=== PATIENT | female | born 1935 | race Caucasian/White ===

== ENCOUNTER 2016-09-01 08:40 | Outpatient (CLI) | payer MEDICARE, MEDICAID ==
[~2016-09-01 08:40] MED LIST: ASPI81TA44 PO; CELE200C PO; ESOM40CA PO; HYDR-3024 PO; HYDR-429 PO; NEBI5TAB8 PO; OLME1TAB PO; SENN8.6T22 PO; SITA1TAB2 PO; [UNRECOGNIZED DRUG - CODE] PO
== END 2016-09-01 23:59 | disposition home health service (06) ==
LOC: WOU 08:40
PROVIDERS: ATTEND Podiatrist Foot & Ankle Surgery
DX: S90.821A Blister (nonthermal), right foot, initial encounter (principal); X58.XXXA Exposure to other specified factors, initial encounter; Y93.01 Activity, walking, marching and hiking; Y92.89 Other specified places as the place of occurrence of the external cause; E11.621 Type 2 diabetes mellitus with foot ulcer; L97.511 Non-pressure chronic ulcer of other part of right foot limited to breakdown of skin; E11.41 Type 2 diabetes mellitus with diabetic mononeuropathy; E66.9 Obesity, unspecified; Z68.30 Body mass index [BMI] 30.0-30.9, adult
CPT/HCPCS: 10140; 87070; A6402; 87186-TC

== ENCOUNTER → 2016-09-15 | Outpatient (CLI) | payer MEDICARE, MEDICAID ==
[~2016-09-15] MED LIST changes: -HYDR-429 PO; +HYDR-548 PO
== END | disposition home health service (06) ==
LOC: WOU 08:55
PROVIDERS: ATTEND Podiatrist Foot & Ankle Surgery
DX: E11.621 Type 2 diabetes mellitus with foot ulcer (principal); L97.512 Non-pressure chronic ulcer of other part of right foot with fat layer exposed; E11.610 Type 2 diabetes mellitus with diabetic neuropathic arthropathy; E11.41 Type 2 diabetes mellitus with diabetic mononeuropathy; E66.09 Other obesity due to excess calories; Z68.30 Body mass index [BMI] 30.0-30.9, adult
CPT/HCPCS: 11042; A6402

== ENCOUNTER 2016-10-06 08:55 | Outpatient (CLI) | payer MEDICARE, MEDICAID | END 2016-10-06 23:59 | disposition home health service (06) | LOC: WOU 08:55 | PROVIDERS: ATTEND Podiatrist Foot & Ankle Surgery | DX: E11.621 Type 2 diabetes mellitus with foot ulcer (principal); L97.511 Non-pressure chronic ulcer of other part of right foot limited to breakdown of skin; E11.41 Type 2 diabetes mellitus with diabetic mononeuropathy; E66.9 Obesity, unspecified; Z68.30 Body mass index [BMI] 30.0-30.9, adult; Z79.84 Long term (current) use of oral hypoglycemic drugs | CPT/HCPCS: 11042; A6402 ==

== ENCOUNTER 2016-10-13 08:54 | Outpatient (CLI) | payer MEDICARE, MEDICAID | END 2016-10-13 23:59 | disposition home health service (06) | LOC: WOU 08:54 | PROVIDERS: ATTEND Podiatrist Foot & Ankle Surgery | DX: E11.621 Type 2 diabetes mellitus with foot ulcer (principal); L97.512 Non-pressure chronic ulcer of other part of right foot with fat layer exposed; E66.9 Obesity, unspecified; Z68.30 Body mass index [BMI] 30.0-30.9, adult; E11.610 Type 2 diabetes mellitus with diabetic neuropathic arthropathy; E11.41 Type 2 diabetes mellitus with diabetic mononeuropathy; S90.821A Blister (nonthermal), right foot, initial encounter; X58.XXXA Exposure to other specified factors, initial encounter; Y93.01 Activity, walking, marching and hiking; Y92.89 Other specified places as the place of occurrence of the external cause | CPT/HCPCS: 11042; A6402 ==

== ENCOUNTER 2016-10-20 09:01 | Outpatient (CLI) | payer MEDICARE, MEDICAID | END 2016-10-20 23:59 | disposition home health service (06) | LOC: WOU 09:01 | PROVIDERS: ATTEND Podiatrist Foot & Ankle Surgery | DX: E11.621 Type 2 diabetes mellitus with foot ulcer (principal); L97.512 Non-pressure chronic ulcer of other part of right foot with fat layer exposed; E11.610 Type 2 diabetes mellitus with diabetic neuropathic arthropathy; E11.41 Type 2 diabetes mellitus with diabetic mononeuropathy; E66.9 Obesity, unspecified; Z68.30 Body mass index [BMI] 30.0-30.9, adult; M20.12 Hallux valgus (acquired), left foot; M20.11 Hallux valgus (acquired), right foot; Z79.84 Long term (current) use of oral hypoglycemic drugs | CPT/HCPCS: 11042; A6402 ==

== ENCOUNTER 2016-10-27 09:03 | Outpatient (CLI) | payer MEDICARE, MEDICAID | END 2016-10-27 23:59 | disposition home health service (06) | LOC: WOU 09:03 | PROVIDERS: ATTEND Podiatrist Foot & Ankle Surgery | DX: E11.621 Type 2 diabetes mellitus with foot ulcer (principal); L97.512 Non-pressure chronic ulcer of other part of right foot with fat layer exposed; E11.42 Type 2 diabetes mellitus with diabetic polyneuropathy; Z99.3 Dependence on wheelchair; E11.41 Type 2 diabetes mellitus with diabetic mononeuropathy; E66.9 Obesity, unspecified; Z68.30 Body mass index [BMI] 30.0-30.9, adult | CPT/HCPCS: 11042; A6402 ==

== ENCOUNTER 2016-11-03 09:10 | Outpatient (CLI) | payer MEDICARE, MEDICAID | END 2016-11-03 23:59 | disposition home health service (06) | LOC: WOU 09:10 | PROVIDERS: ATTEND Podiatrist Foot & Ankle Surgery | DX: E11.621 Type 2 diabetes mellitus with foot ulcer (principal); L97.512 Non-pressure chronic ulcer of other part of right foot with fat layer exposed; E11.41 Type 2 diabetes mellitus with diabetic mononeuropathy; E11.610 Type 2 diabetes mellitus with diabetic neuropathic arthropathy | CPT/HCPCS: 11042; A6402 ==

== ENCOUNTER 2016-11-10 08:57 | Outpatient (CLI) | payer MEDICARE, MEDICAID | END 2016-11-10 23:59 | disposition home health service (06) | LOC: WOU 08:57 | PROVIDERS: ATTEND Podiatrist Foot & Ankle Surgery | DX: E11.621 Type 2 diabetes mellitus with foot ulcer (principal); L97.512 Non-pressure chronic ulcer of other part of right foot with fat layer exposed; S90.821S Blister (nonthermal), right foot, sequela; E11.610 Type 2 diabetes mellitus with diabetic neuropathic arthropathy; E11.41 Type 2 diabetes mellitus with diabetic mononeuropathy; Z79.84 Long term (current) use of oral hypoglycemic drugs | CPT/HCPCS: 11042; A6402 ==

== ENCOUNTER 2016-11-17 08:53 | Outpatient (CLI) | payer MEDICARE, MEDICAID | END 2016-11-17 23:59 | disposition home health service (06) | LOC: WOU 08:53 | PROVIDERS: ATTEND Podiatrist Foot & Ankle Surgery | DX: E11.621 Type 2 diabetes mellitus with foot ulcer (principal); L97.512 Non-pressure chronic ulcer of other part of right foot with fat layer exposed; E11.610 Type 2 diabetes mellitus with diabetic neuropathic arthropathy; Z99.3 Dependence on wheelchair; E11.41 Type 2 diabetes mellitus with diabetic mononeuropathy; G58.9 Mononeuropathy, unspecified; E66.9 Obesity, unspecified; Z68.30 Body mass index [BMI] 30.0-30.9, adult; R26.9 Unspecified abnormalities of gait and mobility; M20.5X2 Other deformities of toe(s) (acquired), left foot; M20.5X1 Other deformities of toe(s) (acquired), right foot; Z79.84 Long term (current) use of oral hypoglycemic drugs | CPT/HCPCS: 11042; A6402 ==

== ENCOUNTER 2016-11-27 08:37 | Outpatient (CLI) | payer MEDICARE, MEDICAID | END 2016-11-27 23:59 | disposition home health service (06) | LOC: WOU 08:37 | PROVIDERS: ATTEND Podiatrist Foot & Ankle Surgery | DX: E11.621 Type 2 diabetes mellitus with foot ulcer (principal); L97.414 Non-pressure chronic ulcer of right heel and midfoot with necrosis of bone; E11.610 Type 2 diabetes mellitus with diabetic neuropathic arthropathy; E10.41 Type 1 diabetes mellitus with diabetic mononeuropathy; E66.9 Obesity, unspecified; Z68.30 Body mass index [BMI] 30.0-30.9, adult; Z71.3 Dietary counseling and surveillance; M20.12 Hallux valgus (acquired), left foot; M20.11 Hallux valgus (acquired), right foot; M20.42 Other hammer toe(s) (acquired), left foot; M20.41 Other hammer toe(s) (acquired), right foot | CPT/HCPCS: 11044; A6402; A6407 ==

== ENCOUNTER 2016-12-01 10:21 | Outpatient (CLI) | payer MEDICARE, MEDICAID | END 2016-12-01 23:59 | disposition home health service (06) | LOC: WOU 10:21 | PROVIDERS: ATTEND Surgery | DX: E11.621 Type 2 diabetes mellitus with foot ulcer (principal); E11.610 Type 2 diabetes mellitus with diabetic neuropathic arthropathy; L97.413 Non-pressure chronic ulcer of right heel and midfoot with necrosis of muscle; E11.41 Type 2 diabetes mellitus with diabetic mononeuropathy; G58.9 Mononeuropathy, unspecified; E66.9 Obesity, unspecified; Z68.30 Body mass index [BMI] 30.0-30.9, adult; M20.42 Other hammer toe(s) (acquired), left foot; M20.41 Other hammer toe(s) (acquired), right foot; R26.9 Unspecified abnormalities of gait and mobility; Z79.84 Long term (current) use of oral hypoglycemic drugs; Z79.899 Other long term (current) drug therapy | CPT/HCPCS: 11043; 97605-TC; A6402 ==

== ENCOUNTER 2016-12-04 09:05 | Outpatient (CLI) | payer MEDICARE, MEDICAID | END 2016-12-04 23:59 | disposition home health service (06) | LOC: WOU 09:05 | PROVIDERS: ATTEND Podiatrist Foot & Ankle Surgery | DX: E11.621 Type 2 diabetes mellitus with foot ulcer (principal); L97.414 Non-pressure chronic ulcer of right heel and midfoot with necrosis of bone; E11.610 Type 2 diabetes mellitus with diabetic neuropathic arthropathy; E66.9 Obesity, unspecified; Z68.30 Body mass index [BMI] 30.0-30.9, adult; M21.072 Valgus deformity, not elsewhere classified, left ankle; M21.071 Valgus deformity, not elsewhere classified, right ankle; R26.9 Unspecified abnormalities of gait and mobility; Z79.899 Other long term (current) drug therapy; Z79.84 Long term (current) use of oral hypoglycemic drugs | CPT/HCPCS: 11044; A6402 ==

== ENCOUNTER 2016-12-11 08:54 | Outpatient (CLI) | payer MEDICARE, MEDICAID | END 2016-12-11 23:59 | disposition home health service (06) | LOC: WOU 08:54 | PROVIDERS: ATTEND Podiatrist Foot & Ankle Surgery | DX: E11.621 Type 2 diabetes mellitus with foot ulcer (principal); L97.414 Non-pressure chronic ulcer of right heel and midfoot with necrosis of bone; E11.610 Type 2 diabetes mellitus with diabetic neuropathic arthropathy; E11.41 Type 2 diabetes mellitus with diabetic mononeuropathy; G58.9 Mononeuropathy, unspecified; Z79.84 Long term (current) use of oral hypoglycemic drugs; E66.9 Obesity, unspecified; Z68.30 Body mass index [BMI] 30.0-30.9, adult; Z71.3 Dietary counseling and surveillance | CPT/HCPCS: 11044; 73630; 97605; A6402 ==

== ENCOUNTER 2016-12-15 08:45 | Outpatient (CLI) | payer MEDICARE, MEDICAID | END 2016-12-15 23:59 | disposition home health service (06) | LOC: WOU 08:45 | PROVIDERS: ATTEND Surgery | DX: E11.621 Type 2 diabetes mellitus with foot ulcer (principal); L97.414 Non-pressure chronic ulcer of right heel and midfoot with necrosis of bone; E11.610 Type 2 diabetes mellitus with diabetic neuropathic arthropathy; E66.9 Obesity, unspecified; Z68.30 Body mass index [BMI] 30.0-30.9, adult; Z71.3 Dietary counseling and surveillance | CPT/HCPCS: 11042; 11044; 97605-TC ==

== ENCOUNTER 2016-12-18 08:59 | Outpatient (CLI) | payer MEDICARE, MEDICAID | END 2016-12-18 23:59 | disposition home health service (06) | LOC: WOU 08:59 | PROVIDERS: ATTEND Podiatrist Foot & Ankle Surgery | DX: E11.621 Type 2 diabetes mellitus with foot ulcer (principal); L97.414 Non-pressure chronic ulcer of right heel and midfoot with necrosis of bone; E11.610 Type 2 diabetes mellitus with diabetic neuropathic arthropathy; E11.41 Type 2 diabetes mellitus with diabetic mononeuropathy; G58.9 Mononeuropathy, unspecified; E66.9 Obesity, unspecified; Z68.30 Body mass index [BMI] 30.0-30.9, adult; Z71.3 Dietary counseling and surveillance; M20.42 Other hammer toe(s) (acquired), left foot; M20.41 Other hammer toe(s) (acquired), right foot; Z79.84 Long term (current) use of oral hypoglycemic drugs; Z79.82 Long term (current) use of aspirin | CPT/HCPCS: 11044; 97605-TC; A6402 ==

== ENCOUNTER 2016-12-22 09:03 | Outpatient (CLI) | payer MEDICARE, MEDICAID | END 2016-12-22 23:59 | disposition home health service (06) | LOC: WOU 09:03 | PROVIDERS: ATTEND Surgery | DX: E11.621 Type 2 diabetes mellitus with foot ulcer (principal); L97.414 Non-pressure chronic ulcer of right heel and midfoot with necrosis of bone; E11.610 Type 2 diabetes mellitus with diabetic neuropathic arthropathy; Z79.84 Long term (current) use of oral hypoglycemic drugs; M20.12 Hallux valgus (acquired), left foot; M20.11 Hallux valgus (acquired), right foot; E11.41 Type 2 diabetes mellitus with diabetic mononeuropathy; G58.9 Mononeuropathy, unspecified; E66.9 Obesity, unspecified; Z68.30 Body mass index [BMI] 30.0-30.9, adult | CPT/HCPCS: 11043; 97605-TC; A6402 ==

== ENCOUNTER → 2016-12-25 | Outpatient (CLI) | payer MEDICARE, MEDICAID | END | disposition home health service (06) | LOC: WOU 09:20 | PROVIDERS: ATTEND Surgery | DX: E11.621 Type 2 diabetes mellitus with foot ulcer (principal); L97.414 Non-pressure chronic ulcer of right heel and midfoot with necrosis of bone; E11.610 Type 2 diabetes mellitus with diabetic neuropathic arthropathy; R26.9 Unspecified abnormalities of gait and mobility; E11.40 Type 2 diabetes mellitus with diabetic neuropathy, unspecified; Z79.84 Long term (current) use of oral hypoglycemic drugs | CPT/HCPCS: 11043; 97605; A6402 ==

== ENCOUNTER 2016-12-29 08:52 | Outpatient (CLI) | payer MEDICARE, MEDICAID | END 2016-12-29 23:59 | disposition home health service (06) | LOC: WOU 08:52 | PROVIDERS: ATTEND Podiatrist Foot & Ankle Surgery | DX: E11.621 Type 2 diabetes mellitus with foot ulcer (principal); L97.411 Non-pressure chronic ulcer of right heel and midfoot limited to breakdown of skin; E11.610 Type 2 diabetes mellitus with diabetic neuropathic arthropathy; E11.41 Type 2 diabetes mellitus with diabetic mononeuropathy; G58.9 Mononeuropathy, unspecified; E66.9 Obesity, unspecified; Z68.30 Body mass index [BMI] 30.0-30.9, adult; Z79.84 Long term (current) use of oral hypoglycemic drugs | CPT/HCPCS: 11042; 97605; A6402 ==

== ENCOUNTER 2017-01-01 09:50 | Outpatient (CLI) | payer MEDICARE, MEDICAID | END 2017-01-01 23:59 | disposition home health service (06) | LOC: WOU 09:50 | PROVIDERS: ATTEND Podiatrist Foot & Ankle Surgery | DX: E11.621 Type 2 diabetes mellitus with foot ulcer (principal); L97.411 Non-pressure chronic ulcer of right heel and midfoot limited to breakdown of skin; E11.610 Type 2 diabetes mellitus with diabetic neuropathic arthropathy; E66.9 Obesity, unspecified; Z68.30 Body mass index [BMI] 30.0-30.9, adult | CPT/HCPCS: 29445; 97605; A6402 ==

== ENCOUNTER 2017-01-05 09:40 | Outpatient (CLI) | payer MEDICARE, MEDICAID | END 2017-01-05 23:59 | disposition home health service (06) | LOC: WOU 09:40 | PROVIDERS: ATTEND Podiatrist Foot & Ankle Surgery | DX: E11.621 Type 2 diabetes mellitus with foot ulcer (principal); L97.411 Non-pressure chronic ulcer of right heel and midfoot limited to breakdown of skin; E11.610 Type 2 diabetes mellitus with diabetic neuropathic arthropathy; L97.521 Non-pressure chronic ulcer of other part of left foot limited to breakdown of skin; E66.9 Obesity, unspecified; Z68.30 Body mass index [BMI] 30.0-30.9, adult | CPT/HCPCS: 29445; A6402 ==

== ENCOUNTER 2017-01-08 09:44 | Outpatient (CLI) | payer MEDICARE, MEDICAID | END 2017-01-08 23:59 | disposition home health service (06) | LOC: WOU 09:44 | PROVIDERS: ATTEND Podiatrist Foot & Ankle Surgery | DX: E11.621 Type 2 diabetes mellitus with foot ulcer (principal); L97.411 Non-pressure chronic ulcer of right heel and midfoot limited to breakdown of skin; L97.521 Non-pressure chronic ulcer of other part of left foot limited to breakdown of skin; E11.610 Type 2 diabetes mellitus with diabetic neuropathic arthropathy; E11.41 Type 2 diabetes mellitus with diabetic mononeuropathy; G58.9 Mononeuropathy, unspecified; Z79.84 Long term (current) use of oral hypoglycemic drugs | CPT/HCPCS: A6402 ==

== ENCOUNTER 2017-01-15 11:02 | Outpatient (CLI) | payer MEDICARE, MEDICAID | END 2017-01-15 23:59 | disposition home health service (06) | LOC: WOU 11:02 | PROVIDERS: ATTEND Surgery | DX: E11.621 Type 2 diabetes mellitus with foot ulcer (principal); L97.411 Non-pressure chronic ulcer of right heel and midfoot limited to breakdown of skin; E11.610 Type 2 diabetes mellitus with diabetic neuropathic arthropathy; L97.529 Non-pressure chronic ulcer of other part of left foot with unspecified severity | CPT/HCPCS: 11042; A6402 ==

== ENCOUNTER 2017-01-22 10:15 | Outpatient (CLI) | payer MEDICARE, MEDICAID | END 2017-01-22 23:59 | disposition home health service (06) | LOC: WOU 10:15 | PROVIDERS: ATTEND Podiatrist Foot & Ankle Surgery | DX: E11.621 Type 2 diabetes mellitus with foot ulcer (principal); L97.411 Non-pressure chronic ulcer of right heel and midfoot limited to breakdown of skin; E11.610 Type 2 diabetes mellitus with diabetic neuropathic arthropathy; E66.8 Other obesity; Z68.30 Body mass index [BMI] 30.0-30.9, adult; Z79.84 Long term (current) use of oral hypoglycemic drugs; Z79.899 Other long term (current) drug therapy; Z79.82 Long term (current) use of aspirin | CPT/HCPCS: 11042; A6402 ==

== ENCOUNTER 2017-02-02 09:45 | Outpatient (CLI) | payer MEDICARE, MEDICAID | END 2017-02-02 23:59 | disposition home health service (06) | LOC: WOU 09:45 | PROVIDERS: ATTEND Podiatrist Foot & Ankle Surgery | DX: E11.621 Type 2 diabetes mellitus with foot ulcer (principal); L97.411 Non-pressure chronic ulcer of right heel and midfoot limited to breakdown of skin; E11.610 Type 2 diabetes mellitus with diabetic neuropathic arthropathy; E11.41 Type 2 diabetes mellitus with diabetic mononeuropathy; E66.9 Obesity, unspecified; Z68.30 Body mass index [BMI] 30.0-30.9, adult; Z71.3 Dietary counseling and surveillance; Z79.84 Long term (current) use of oral hypoglycemic drugs | CPT/HCPCS: 11042; 11043; A6402 ==

== ENCOUNTER 2017-02-09 09:57 | Outpatient (CLI) | payer MEDICARE, MEDICAID | END 2017-02-09 23:59 | disposition home health service (06) | LOC: WOU 09:57 | PROVIDERS: ATTEND Podiatrist Foot & Ankle Surgery | DX: E11.621 Type 2 diabetes mellitus with foot ulcer (principal); L97.511 Non-pressure chronic ulcer of other part of right foot limited to breakdown of skin | CPT/HCPCS: 11042; A6402 ==

== ENCOUNTER 2017-02-23 09:25 | Outpatient (CLI) | payer MEDICARE, MEDICAID | END 2017-02-23 23:59 | disposition home health service (06) | LOC: WOU 09:25 | PROVIDERS: ATTEND Podiatrist Foot & Ankle Surgery | DX: E11.610 Type 2 diabetes mellitus with diabetic neuropathic arthropathy (principal); E11.41 Type 2 diabetes mellitus with diabetic mononeuropathy; G58.9 Mononeuropathy, unspecified; Z79.84 Long term (current) use of oral hypoglycemic drugs; E66.9 Obesity, unspecified; Z68.30 Body mass index [BMI] 30.0-30.9, adult | CPT/HCPCS: G0463 ==

== ENCOUNTER 2017-03-02 09:50 | Outpatient (CLI) | payer MEDICARE, MEDICAID | END 2017-03-02 23:59 | disposition home or self-care (01) | LOC: WOU 09:50 | PROVIDERS: ATTEND Podiatrist Foot & Ankle Surgery | DX: E11.41 Type 2 diabetes mellitus with diabetic mononeuropathy (principal); E11.610 Type 2 diabetes mellitus with diabetic neuropathic arthropathy; E66.9 Obesity, unspecified; Z68.30 Body mass index [BMI] 30.0-30.9, adult | CPT/HCPCS: G0463 ==

== ENCOUNTER 2017-03-12 09:34 | Outpatient (CLI) | payer MEDICARE, MEDICAID | END 2017-03-12 23:59 | disposition home or self-care (01) | LOC: WOU 09:34 | PROVIDERS: ATTEND Podiatrist Foot & Ankle Surgery | DX: E11.610 Type 2 diabetes mellitus with diabetic neuropathic arthropathy (principal); E11.41 Type 2 diabetes mellitus with diabetic mononeuropathy; M20.12 Hallux valgus (acquired), left foot; M20.11 Hallux valgus (acquired), right foot; M20.42 Other hammer toe(s) (acquired), left foot; M20.41 Other hammer toe(s) (acquired), right foot | CPT/HCPCS: G0463 ==

== ENCOUNTER 2017-05-04 09:30 | Outpatient (CLI) | payer MEDICARE, MEDICAID | END 2017-05-04 23:59 | disposition home health service (06) | LOC: WOU 09:30 | PROVIDERS: ATTEND Podiatrist Foot & Ankle Surgery | DX: E11.621 Type 2 diabetes mellitus with foot ulcer (principal); L97.413 Non-pressure chronic ulcer of right heel and midfoot with necrosis of muscle; T81.30XA Disruption of wound, unspecified, initial encounter; E11.41 Type 2 diabetes mellitus with diabetic mononeuropathy; E11.610 Type 2 diabetes mellitus with diabetic neuropathic arthropathy; E66.9 Obesity, unspecified; Z68.30 Body mass index [BMI] 30.0-30.9, adult | CPT/HCPCS: 11043; A6402 ==

== ENCOUNTER 2017-05-11 08:50 | Outpatient (CLI) | payer MEDICARE, MEDICAID | END 2017-05-11 23:59 | disposition home or self-care (01) | LOC: WOU 08:50 | PROVIDERS: ATTEND Podiatrist Foot & Ankle Surgery | DX: E11.621 Type 2 diabetes mellitus with foot ulcer (principal); L97.413 Non-pressure chronic ulcer of right heel and midfoot with necrosis of muscle; E11.610 Type 2 diabetes mellitus with diabetic neuropathic arthropathy; Z83.3 Family history of diabetes mellitus; E11.41 Type 2 diabetes mellitus with diabetic mononeuropathy | CPT/HCPCS: 11043; 97605-TC; A6402 ==

== ENCOUNTER 2017-05-14 08:56 | Outpatient (CLI) | payer MEDICARE, MEDICAID | END 2017-05-14 23:59 | disposition home or self-care (01) | LOC: WOU 08:56 | PROVIDERS: ATTEND Podiatrist Foot & Ankle Surgery | DX: E11.621 Type 2 diabetes mellitus with foot ulcer (principal); L97.412 Non-pressure chronic ulcer of right heel and midfoot with fat layer exposed; E11.610 Type 2 diabetes mellitus with diabetic neuropathic arthropathy; E11.41 Type 2 diabetes mellitus with diabetic mononeuropathy; Z79.84 Long term (current) use of oral hypoglycemic drugs | CPT/HCPCS: 11043; 97605-TC; A6402 ==

== ENCOUNTER 2017-05-18 08:53 | Outpatient (CLI) | payer MEDICARE, MEDICAID | END 2017-05-18 23:59 | disposition home or self-care (01) | LOC: WOU 08:53 | PROVIDERS: ATTEND Podiatrist Foot & Ankle Surgery | DX: E11.621 Type 2 diabetes mellitus with foot ulcer (principal); L97.413 Non-pressure chronic ulcer of right heel and midfoot with necrosis of muscle; L97.529 Non-pressure chronic ulcer of other part of left foot with unspecified severity; E66.9 Obesity, unspecified; Z68.30 Body mass index [BMI] 30.0-30.9, adult; E11.610 Type 2 diabetes mellitus with diabetic neuropathic arthropathy | CPT/HCPCS: 11043; 97605-TC; A6209; A6402 ==

== ENCOUNTER 2017-05-21 09:10 | Outpatient (CLI) | payer MEDICARE, MEDICAID | END 2017-05-21 23:59 | disposition home or self-care (01) | LOC: WOU 09:10 | PROVIDERS: ATTEND Podiatrist Foot & Ankle Surgery | DX: E11.621 Type 2 diabetes mellitus with foot ulcer (principal); L97.413 Non-pressure chronic ulcer of right heel and midfoot with necrosis of muscle; L97.522 Non-pressure chronic ulcer of other part of left foot with fat layer exposed; E11.610 Type 2 diabetes mellitus with diabetic neuropathic arthropathy; Z79.84 Long term (current) use of oral hypoglycemic drugs; Z83.3 Family history of diabetes mellitus; E11.41 Type 2 diabetes mellitus with diabetic mononeuropathy; E66.9 Obesity, unspecified; Z68.30 Body mass index [BMI] 30.0-30.9, adult | CPT/HCPCS: 11043; 97605-TC; A6209; A6402 ==

== ENCOUNTER 2017-05-25 08:55 | Outpatient (CLI) | payer MEDICARE, MEDICAID | END 2017-05-25 23:59 | disposition home or self-care (01) | LOC: WOU 08:55 | PROVIDERS: ATTEND Podiatrist Foot & Ankle Surgery | DX: E11.621 Type 2 diabetes mellitus with foot ulcer (principal); L97.413 Non-pressure chronic ulcer of right heel and midfoot with necrosis of muscle; E11.610 Type 2 diabetes mellitus with diabetic neuropathic arthropathy; L97.529 Non-pressure chronic ulcer of other part of left foot with unspecified severity; E66.9 Obesity, unspecified; Z68.30 Body mass index [BMI] 30.0-30.9, adult; Z71.3 Dietary counseling and surveillance | CPT/HCPCS: 11043; 97605; A6402 ==

== ENCOUNTER 2017-05-28 08:45 | Outpatient (CLI) | payer MEDICARE, MEDICAID | END 2017-05-28 23:59 | disposition home or self-care (01) | LOC: WOU 08:45 | PROVIDERS: ATTEND Podiatrist Foot & Ankle Surgery | DX: E11.621 Type 2 diabetes mellitus with foot ulcer (principal); L97.412 Non-pressure chronic ulcer of right heel and midfoot with fat layer exposed; E11.610 Type 2 diabetes mellitus with diabetic neuropathic arthropathy | CPT/HCPCS: 11042; 97605; A6402 ==

== ENCOUNTER 2017-06-01 09:00 | Outpatient (CLI) | payer MEDICARE, MEDICAID | END 2017-06-01 23:59 | disposition home or self-care (01) | LOC: WOU 09:00 | PROVIDERS: ATTEND Podiatrist Foot & Ankle Surgery | DX: E11.621 Type 2 diabetes mellitus with foot ulcer (principal); L97.412 Non-pressure chronic ulcer of right heel and midfoot with fat layer exposed; T81.30XA Disruption of wound, unspecified, initial encounter; Z79.84 Long term (current) use of oral hypoglycemic drugs; Z79.899 Other long term (current) drug therapy; E11.41 Type 2 diabetes mellitus with diabetic mononeuropathy; E11.610 Type 2 diabetes mellitus with diabetic neuropathic arthropathy | CPT/HCPCS: 11042; 97605; A6402 ==

== ENCOUNTER 2017-06-04 09:35 | Outpatient (CLI) | payer MEDICARE, MEDICAID | END 2017-06-04 23:59 | disposition home or self-care (01) | LOC: WOU 09:35 | PROVIDERS: ATTEND Podiatrist Foot & Ankle Surgery | DX: E11.621 Type 2 diabetes mellitus with foot ulcer (principal); L97.412 Non-pressure chronic ulcer of right heel and midfoot with fat layer exposed; E11.610 Type 2 diabetes mellitus with diabetic neuropathic arthropathy; Z79.84 Long term (current) use of oral hypoglycemic drugs | CPT/HCPCS: 11042; 97605; A6402 ==

== ENCOUNTER 2017-06-08 09:00 | Outpatient (CLI) | payer MEDICARE, MEDICAID | END 2017-06-08 23:59 | disposition home or self-care (01) | LOC: WOU 09:00 | PROVIDERS: ATTEND Podiatrist Foot & Ankle Surgery | DX: E11.621 Type 2 diabetes mellitus with foot ulcer (principal); L97.412 Non-pressure chronic ulcer of right heel and midfoot with fat layer exposed; E11.610 Type 2 diabetes mellitus with diabetic neuropathic arthropathy; E11.41 Type 2 diabetes mellitus with diabetic mononeuropathy; E66.9 Obesity, unspecified; Z68.30 Body mass index [BMI] 30.0-30.9, adult; Z79.84 Long term (current) use of oral hypoglycemic drugs | CPT/HCPCS: 11042; 97605; A6402 ==

== ENCOUNTER 2017-06-11 09:42 | Outpatient (CLI) | payer MEDICARE, MEDICAID | END 2017-06-11 23:59 | disposition home or self-care (01) | LOC: WOU 09:42 | PROVIDERS: ATTEND Podiatrist Foot & Ankle Surgery | DX: E11.621 Type 2 diabetes mellitus with foot ulcer (principal); L97.412 Non-pressure chronic ulcer of right heel and midfoot with fat layer exposed; E11.610 Type 2 diabetes mellitus with diabetic neuropathic arthropathy; Z79.84 Long term (current) use of oral hypoglycemic drugs; E11.41 Type 2 diabetes mellitus with diabetic mononeuropathy; E66.9 Obesity, unspecified; Z68.30 Body mass index [BMI] 30.0-30.9, adult | CPT/HCPCS: 11042; 97605; A6402 ==

== ENCOUNTER 2017-06-15 09:00 | Outpatient (CLI) | payer MEDICARE, MEDICAID | END 2017-06-15 23:59 | disposition home or self-care (01) | LOC: WOU 09:00 | PROVIDERS: ATTEND Podiatrist Foot & Ankle Surgery | DX: E11.621 Type 2 diabetes mellitus with foot ulcer (principal); L97.412 Non-pressure chronic ulcer of right heel and midfoot with fat layer exposed; E11.610 Type 2 diabetes mellitus with diabetic neuropathic arthropathy; E66.9 Obesity, unspecified; Z68.30 Body mass index [BMI] 30.0-30.9, adult; Z71.3 Dietary counseling and surveillance; M21.072 Valgus deformity, not elsewhere classified, left ankle; M21.071 Valgus deformity, not elsewhere classified, right ankle; M20.42 Other hammer toe(s) (acquired), left foot; M20.41 Other hammer toe(s) (acquired), right foot; Z79.84 Long term (current) use of oral hypoglycemic drugs; Z79.899 Other long term (current) drug therapy | CPT/HCPCS: 11042; 97605-TC ==

== ENCOUNTER 2017-06-18 09:57 | Outpatient (CLI) | payer MEDICARE, MEDICAID | END 2017-06-18 23:59 | disposition home or self-care (01) | LOC: WOU 09:57 | PROVIDERS: ATTEND Podiatrist Foot & Ankle Surgery | DX: E11.621 Type 2 diabetes mellitus with foot ulcer (principal); L97.412 Non-pressure chronic ulcer of right heel and midfoot with fat layer exposed; E11.610 Type 2 diabetes mellitus with diabetic neuropathic arthropathy; T81.30XA Disruption of wound, unspecified, initial encounter; L97.521 Non-pressure chronic ulcer of other part of left foot limited to breakdown of skin; Z79.84 Long term (current) use of oral hypoglycemic drugs; E11.41 Type 2 diabetes mellitus with diabetic mononeuropathy | CPT/HCPCS: 11042; A6402 ==

== ENCOUNTER 2017-06-22 09:32 | Outpatient (CLI) | payer MEDICARE, MEDICAID | END 2017-06-22 23:59 | disposition home or self-care (01) | LOC: WOU 09:32 | PROVIDERS: ATTEND Podiatrist Foot & Ankle Surgery | DX: E11.621 Type 2 diabetes mellitus with foot ulcer (principal); L97.412 Non-pressure chronic ulcer of right heel and midfoot with fat layer exposed; E11.610 Type 2 diabetes mellitus with diabetic neuropathic arthropathy; E11.41 Type 2 diabetes mellitus with diabetic mononeuropathy; E66.9 Obesity, unspecified; Z68.30 Body mass index [BMI] 30.0-30.9, adult; M20.42 Other hammer toe(s) (acquired), left foot; M20.41 Other hammer toe(s) (acquired), right foot; M21.072 Valgus deformity, not elsewhere classified, left ankle; M21.071 Valgus deformity, not elsewhere classified, right ankle | CPT/HCPCS: 11042; A6209; A6402 ==

== ENCOUNTER 2017-06-25 09:34 | Outpatient (CLI) | payer MEDICARE, MEDICAID | END 2017-06-25 23:59 | disposition home or self-care (01) | LOC: WOU 09:34 | PROVIDERS: ATTEND Podiatrist Foot & Ankle Surgery | DX: E11.621 Type 2 diabetes mellitus with foot ulcer (principal); L97.412 Non-pressure chronic ulcer of right heel and midfoot with fat layer exposed; E11.610 Type 2 diabetes mellitus with diabetic neuropathic arthropathy; E11.41 Type 2 diabetes mellitus with diabetic mononeuropathy; E66.9 Obesity, unspecified; Z68.30 Body mass index [BMI] 30.0-30.9, adult; M20.42 Other hammer toe(s) (acquired), left foot; M20.41 Other hammer toe(s) (acquired), right foot; Z79.84 Long term (current) use of oral hypoglycemic drugs; Z79.899 Other long term (current) drug therapy | CPT/HCPCS: 11042; A6402 ==

== ENCOUNTER 2017-06-29 09:04 | Outpatient (CLI) | payer MEDICARE, MEDICAID | END 2017-06-29 23:59 | disposition home or self-care (01) | LOC: WOU 09:04 | PROVIDERS: ATTEND Podiatrist Foot & Ankle Surgery | DX: E11.621 Type 2 diabetes mellitus with foot ulcer (principal); L97.412 Non-pressure chronic ulcer of right heel and midfoot with fat layer exposed; E11.610 Type 2 diabetes mellitus with diabetic neuropathic arthropathy; E11.41 Type 2 diabetes mellitus with diabetic mononeuropathy; Z79.84 Long term (current) use of oral hypoglycemic drugs; E66.9 Obesity, unspecified; Z68.30 Body mass index [BMI] 30.0-30.9, adult; Z87.891 Personal history of nicotine dependence | CPT/HCPCS: 11042; A6402 ==

== ENCOUNTER → 2017-07-02 | Outpatient (CLI) | payer MEDICARE, MEDICAID | END | disposition home or self-care (01) | LOC: WOU 08:56 | PROVIDERS: ATTEND Podiatrist Foot & Ankle Surgery | DX: E11.621 Type 2 diabetes mellitus with foot ulcer (principal); L97.412 Non-pressure chronic ulcer of right heel and midfoot with fat layer exposed; L97.521 Non-pressure chronic ulcer of other part of left foot limited to breakdown of skin; E11.610 Type 2 diabetes mellitus with diabetic neuropathic arthropathy; E11.41 Type 2 diabetes mellitus with diabetic mononeuropathy; E66.9 Obesity, unspecified; Z68.30 Body mass index [BMI] 30.0-30.9, adult; Z79.84 Long term (current) use of oral hypoglycemic drugs | CPT/HCPCS: 11042; A6209; A6402 ==

== ENCOUNTER 2017-07-06 09:00 | Outpatient (CLI) | payer MEDICARE, MEDICAID | END 2017-07-06 23:59 | disposition home or self-care (01) | LOC: WOU 09:00 | PROVIDERS: ATTEND Podiatrist Foot & Ankle Surgery | DX: E11.621 Type 2 diabetes mellitus with foot ulcer (principal); L97.412 Non-pressure chronic ulcer of right heel and midfoot with fat layer exposed; L97.521 Non-pressure chronic ulcer of other part of left foot limited to breakdown of skin; E11.610 Type 2 diabetes mellitus with diabetic neuropathic arthropathy; E66.9 Obesity, unspecified; Z68.30 Body mass index [BMI] 30.0-30.9, adult; M20.42 Other hammer toe(s) (acquired), left foot; M20.41 Other hammer toe(s) (acquired), right foot; Z83.3 Family history of diabetes mellitus; Z79.84 Long term (current) use of oral hypoglycemic drugs | CPT/HCPCS: 15275; A6209; A6402; Q4132 ==

== ENCOUNTER 2017-07-13 09:15 | Outpatient (CLI) | payer MEDICARE, MEDICAID | END 2017-07-13 23:59 | disposition home or self-care (01) | LOC: WOU 09:15 | PROVIDERS: ATTEND Podiatrist Foot & Ankle Surgery | DX: E11.621 Type 2 diabetes mellitus with foot ulcer (principal); L97.412 Non-pressure chronic ulcer of right heel and midfoot with fat layer exposed; L97.521 Non-pressure chronic ulcer of other part of left foot limited to breakdown of skin; E11.610 Type 2 diabetes mellitus with diabetic neuropathic arthropathy; Z87.891 Personal history of nicotine dependence; Z79.84 Long term (current) use of oral hypoglycemic drugs; Z83.3 Family history of diabetes mellitus; E66.9 Obesity, unspecified; Z68.30 Body mass index [BMI] 30.0-30.9, adult | CPT/HCPCS: 15275; A6402; Q4132 ==

== ENCOUNTER 2017-07-20 08:50 | Outpatient (CLI) | payer MEDICARE, MEDICAID | END 2017-07-20 23:59 | disposition home or self-care (01) | LOC: WOU 08:50 | PROVIDERS: ATTEND Podiatrist Foot & Ankle Surgery | DX: E11.621 Type 2 diabetes mellitus with foot ulcer (principal); L97.412 Non-pressure chronic ulcer of right heel and midfoot with fat layer exposed; E11.610 Type 2 diabetes mellitus with diabetic neuropathic arthropathy; E11.41 Type 2 diabetes mellitus with diabetic mononeuropathy; G58.9 Mononeuropathy, unspecified; Z79.84 Long term (current) use of oral hypoglycemic drugs | CPT/HCPCS: 15275; A6402; Q4133 ==

== ENCOUNTER 2017-07-27 09:00 | Outpatient (CLI) | payer MEDICARE, MEDICAID ==
[~2017-07-27 09:00] MED LIST changes: +RACEPINEPHRINE HCL 2.25% NEB 0.5 ML VIAL.NEB IH ONE
== END 2017-07-27 23:59 | disposition home or self-care (01) ==
LOC: WOU 09:00
PROVIDERS: ATTEND Podiatrist Foot & Ankle Surgery
DX: L97.412 Non-pressure chronic ulcer of right heel and midfoot with fat layer exposed (principal); E11.610 Type 2 diabetes mellitus with diabetic neuropathic arthropathy; E11.41 Type 2 diabetes mellitus with diabetic mononeuropathy; G58.9 Mononeuropathy, unspecified; Z79.84 Long term (current) use of oral hypoglycemic drugs; Z79.899 Other long term (current) drug therapy
CPT/HCPCS: 15275; A6402

== ENCOUNTER 2017-08-03 09:00 | Outpatient (CLI) | payer MEDICARE, MEDICAID ==
[~2017-08-03 09:00] MED LIST changes: -RACEPINEPHRINE HCL 2.25% NEB 0.5 ML VIAL.NEB IH ONE
== END 2017-08-03 23:59 | disposition home or self-care (01) ==
LOC: WOU 09:00
PROVIDERS: ATTEND Podiatrist Foot & Ankle Surgery
DX: E11.621 Type 2 diabetes mellitus with foot ulcer (principal); L97.412 Non-pressure chronic ulcer of right heel and midfoot with fat layer exposed; E11.610 Type 2 diabetes mellitus with diabetic neuropathic arthropathy; E66.9 Obesity, unspecified; Z68.34 Body mass index [BMI] 34.0-34.9, adult; Z79.84 Long term (current) use of oral hypoglycemic drugs
CPT/HCPCS: 15275; A6402; Q4132

== ENCOUNTER 2017-08-13 10:02 | Outpatient (CLI) | payer MEDICARE, MEDICAID ==
[~2017-08-13 10:02] MED LIST changes: -OLME1TAB PO; +OLME1TAB16 PO
== END 2017-08-13 23:59 | disposition home or self-care (01) ==
LOC: WOU 10:02
PROVIDERS: ATTEND Podiatrist Foot & Ankle Surgery
DX: E11.621 Type 2 diabetes mellitus with foot ulcer (principal); L97.412 Non-pressure chronic ulcer of right heel and midfoot with fat layer exposed; E66.9 Obesity, unspecified; Z68.30 Body mass index [BMI] 30.0-30.9, adult; E11.610 Type 2 diabetes mellitus with diabetic neuropathic arthropathy; E11.41 Type 2 diabetes mellitus with diabetic mononeuropathy; G58.9 Mononeuropathy, unspecified; Z79.84 Long term (current) use of oral hypoglycemic drugs
CPT/HCPCS: 15275; A6402; Q4133 ×2

== ENCOUNTER 2017-08-20 09:36 | Outpatient (CLI) | payer MEDICARE, MEDICAID | END 2017-08-20 23:59 | disposition home or self-care (01) | LOC: WOU 09:36 | PROVIDERS: ATTEND Podiatrist Foot & Ankle Surgery | DX: E11.621 Type 2 diabetes mellitus with foot ulcer (principal); L97.412 Non-pressure chronic ulcer of right heel and midfoot with fat layer exposed; E11.610 Type 2 diabetes mellitus with diabetic neuropathic arthropathy; E11.41 Type 2 diabetes mellitus with diabetic mononeuropathy; Z79.84 Long term (current) use of oral hypoglycemic drugs | CPT/HCPCS: 15275; A6402; Q4133 ×2 ==

== ENCOUNTER 2017-08-31 09:28 | Outpatient (CLI) | payer MEDICARE, MEDICAID | END 2017-08-31 23:59 | disposition home or self-care (01) | LOC: WOU 09:28 | PROVIDERS: ATTEND Podiatrist Foot & Ankle Surgery | DX: E11.621 Type 2 diabetes mellitus with foot ulcer (principal); L97.412 Non-pressure chronic ulcer of right heel and midfoot with fat layer exposed; E11.610 Type 2 diabetes mellitus with diabetic neuropathic arthropathy; Z79.84 Long term (current) use of oral hypoglycemic drugs; E11.41 Type 2 diabetes mellitus with diabetic mononeuropathy; G58.9 Mononeuropathy, unspecified; E66.9 Obesity, unspecified; Z68.30 Body mass index [BMI] 30.0-30.9, adult | CPT/HCPCS: 11042; A6402 ==

== ENCOUNTER 2017-09-07 09:08 | Outpatient (CLI) | payer MEDICARE, MEDICAID | END 2017-09-07 23:59 | disposition home or self-care (01) | LOC: WOU 09:08 | PROVIDERS: ATTEND Podiatrist Foot & Ankle Surgery | DX: E11.42 Type 2 diabetes mellitus with diabetic polyneuropathy (principal); E11.610 Type 2 diabetes mellitus with diabetic neuropathic arthropathy; Z86.31 Personal history of diabetic foot ulcer; E66.9 Obesity, unspecified; Z68.30 Body mass index [BMI] 30.0-30.9, adult; Z83.3 Family history of diabetes mellitus; Z79.84 Long term (current) use of oral hypoglycemic drugs | CPT/HCPCS: A6402 ==

== ENCOUNTER 2017-09-10 09:20 | Outpatient (CLI) | payer MEDICARE, MEDICAID ==
[~2017-09-10 09:20] MED LIST changes: +ALBUTEROL FS 2.5 MG/0.5 ML VIAL.NEB ONE
== END 2017-09-10 23:59 | disposition home or self-care (01) ==
LOC: WOU 09:20
PROVIDERS: ATTEND Podiatrist Foot & Ankle Surgery
DX: E11.610 Type 2 diabetes mellitus with diabetic neuropathic arthropathy (principal); Z86.31 Personal history of diabetic foot ulcer; E11.41 Type 2 diabetes mellitus with diabetic mononeuropathy; G58.9 Mononeuropathy, unspecified
CPT/HCPCS: A6402

== ENCOUNTER 2017-09-21 08:28 | Outpatient (CLI) | payer MEDICARE, MEDICAID ==
[~2017-09-21 08:28] MED LIST changes: -ALBUTEROL FS 2.5 MG/0.5 ML VIAL.NEB ONE
== END 2017-09-21 23:59 | disposition home or self-care (01) ==
LOC: WOU 08:28
PROVIDERS: ATTEND Podiatrist Foot & Ankle Surgery
DX: E11.610 Type 2 diabetes mellitus with diabetic neuropathic arthropathy (principal); E11.41 Type 2 diabetes mellitus with diabetic mononeuropathy; G58.9 Mononeuropathy, unspecified; Z86.31 Personal history of diabetic foot ulcer
CPT/HCPCS: 29445; A6402

== ENCOUNTER 2017-09-28 09:20 | Outpatient (CLI) | payer MEDICARE, MEDICAID | END 2017-09-28 23:59 | disposition home or self-care (01) | LOC: WOU 09:20 | PROVIDERS: ATTEND Podiatrist Foot & Ankle Surgery | DX: E11.610 Type 2 diabetes mellitus with diabetic neuropathic arthropathy (principal); Z83.3 Family history of diabetes mellitus; E11.41 Type 2 diabetes mellitus with diabetic mononeuropathy; G58.9 Mononeuropathy, unspecified; E66.9 Obesity, unspecified; Z68.30 Body mass index [BMI] 30.0-30.9, adult; Z79.84 Long term (current) use of oral hypoglycemic drugs ==

== ENCOUNTER 2017-10-12 08:54 | Outpatient (CLI) | payer MEDICARE, MEDICAID | END 2017-10-12 23:59 | disposition home or self-care (01) | LOC: WOU 08:54 | PROVIDERS: ATTEND Podiatrist Foot & Ankle Surgery | DX: E11.610 Type 2 diabetes mellitus with diabetic neuropathic arthropathy (principal); Z86.31 Personal history of diabetic foot ulcer; E66.9 Obesity, unspecified; Z68.34 Body mass index [BMI] 34.0-34.9, adult; E11.41 Type 2 diabetes mellitus with diabetic mononeuropathy; G58.9 Mononeuropathy, unspecified ==

== ENCOUNTER → 2017-10-22 | Outpatient (CLI) | payer MEDICARE, MEDICAID | LOC: WOU 08:58 | PROVIDERS: ATTEND Podiatrist Foot & Ankle Surgery | DX: E11.610 Type 2 diabetes mellitus with diabetic neuropathic arthropathy (principal); E11.41 Type 2 diabetes mellitus with diabetic mononeuropathy; G58.9 Mononeuropathy, unspecified; E66.9 Obesity, unspecified; Z68.30 Body mass index [BMI] 30.0-30.9, adult | CPT/HCPCS: 29445; A6402 ==

== ENCOUNTER 2017-11-09 08:46 | Outpatient (CLI) | payer MEDICARE, MEDICAID | END 2017-11-09 23:59 | disposition home or self-care (01) | LOC: WOU 08:46 | PROVIDERS: ATTEND Podiatrist Foot & Ankle Surgery | DX: E11.610 Type 2 diabetes mellitus with diabetic neuropathic arthropathy (principal); E11.41 Type 2 diabetes mellitus with diabetic mononeuropathy; Z79.84 Long term (current) use of oral hypoglycemic drugs; E66.9 Obesity, unspecified; Z68.30 Body mass index [BMI] 30.0-30.9, adult | CPT/HCPCS: G0463 ==

== ENCOUNTER 2017-11-16 08:50 | Outpatient (CLI) | payer MEDICARE, MEDICAID ==
[~2017-11-16 08:50] MED LIST changes: +GLUCAGON,HUMAN RECOMBINANT 1 MG/VIAL VIAL ONE; +WATER FOR INJECTION,STERILE 10 ML ONE
== END 2017-11-16 23:59 | disposition home or self-care (01) ==
LOC: WOU 08:50
PROVIDERS: ATTEND Podiatrist Foot & Ankle Surgery
DX: E11.610 Type 2 diabetes mellitus with diabetic neuropathic arthropathy (principal); S92.414A Nondisplaced fracture of proximal phalanx of right great toe, initial encounter for closed fracture; W19.XXXA Unspecified fall, initial encounter; Y92.89 Other specified places as the place of occurrence of the external cause; E11.41 Type 2 diabetes mellitus with diabetic mononeuropathy; G58.9 Mononeuropathy, unspecified
CPT/HCPCS: 73630-TC; J1610

== ENCOUNTER 2017-12-03 09:00 | Outpatient (CLI) | payer MEDICARE, MEDICAID ==
[~2017-12-03 09:00] MED LIST changes: -GLUCAGON,HUMAN RECOMBINANT 1 MG/VIAL VIAL ONE; -WATER FOR INJECTION,STERILE 10 ML ONE
== END 2017-12-03 23:59 | disposition home or self-care (01) ==
LOC: WOU 09:00
PROVIDERS: ATTEND Podiatrist Foot & Ankle Surgery
DX: E11.610 Type 2 diabetes mellitus with diabetic neuropathic arthropathy (principal); E11.41 Type 2 diabetes mellitus with diabetic mononeuropathy; G58.9 Mononeuropathy, unspecified; S92.414D Nondisplaced fracture of proximal phalanx of right great toe, subsequent encounter for fracture with routine healing; X58.XXXD Exposure to other specified factors, subsequent encounter

== ENCOUNTER 2017-12-07 09:08 | Outpatient (CLI) | payer MEDICARE, MEDICAID | END 2017-12-07 23:59 | disposition home or self-care (01) | LOC: WOU 09:08 | PROVIDERS: ATTEND Podiatrist Foot & Ankle Surgery | DX: Z04.8 Encounter for examination and observation for other specified reasons (principal); E11.610 Type 2 diabetes mellitus with diabetic neuropathic arthropathy; Z79.84 Long term (current) use of oral hypoglycemic drugs | CPT/HCPCS: G0463 ==

== ENCOUNTER 2017-12-21 08:15 | Outpatient (CLI) | payer MEDICARE, MEDICAID | END 2017-12-21 23:59 | disposition home or self-care (01) | LOC: WOU 08:15 | PROVIDERS: ATTEND Podiatrist Foot & Ankle Surgery | DX: S91.202A Unspecified open wound of left great toe with damage to nail, initial encounter (principal); W22.8XXA Striking against or struck by other objects, initial encounter; Y93.01 Activity, walking, marching and hiking; Y92.89 Other specified places as the place of occurrence of the external cause; E11.42 Type 2 diabetes mellitus with diabetic polyneuropathy; E11.610 Type 2 diabetes mellitus with diabetic neuropathic arthropathy; E66.9 Obesity, unspecified; Z68.30 Body mass index [BMI] 30.0-30.9, adult; R26.9 Unspecified abnormalities of gait and mobility; Z79.84 Long term (current) use of oral hypoglycemic drugs; Z79.899 Other long term (current) drug therapy | CPT/HCPCS: 11730; A6402 ==

== ENCOUNTER 2017-12-28 09:30 | Outpatient (CLI) | payer MEDICARE, MEDICAID | END 2017-12-28 23:59 | disposition home or self-care (01) | LOC: WOU 09:30 | PROVIDERS: ATTEND Podiatrist Foot & Ankle Surgery | DX: S91.212D Laceration without foreign body of left great toe with damage to nail, subsequent encounter (principal); X58.XXXD Exposure to other specified factors, subsequent encounter; Z86.31 Personal history of diabetic foot ulcer; E11.41 Type 2 diabetes mellitus with diabetic mononeuropathy; S92.414D Nondisplaced fracture of proximal phalanx of right great toe, subsequent encounter for fracture with routine healing; E11.610 Type 2 diabetes mellitus with diabetic neuropathic arthropathy; Z79.84 Long term (current) use of oral hypoglycemic drugs; Z83.3 Family history of diabetes mellitus; E66.9 Obesity, unspecified; Z68.30 Body mass index [BMI] 30.0-30.9, adult | CPT/HCPCS: G0463 ==

== ENCOUNTER 2018-02-04 09:15 | Outpatient (CLI) | payer MEDICARE, MEDICAID | END 2018-02-04 23:59 | disposition home or self-care (01) | LOC: WOU 09:15 | PROVIDERS: ATTEND Podiatrist Foot & Ankle Surgery | DX: E11.621 Type 2 diabetes mellitus with foot ulcer (principal); L97.512 Non-pressure chronic ulcer of other part of right foot with fat layer exposed; L03.031 Cellulitis of right toe; E11.610 Type 2 diabetes mellitus with diabetic neuropathic arthropathy; E66.9 Obesity, unspecified; Z68.30 Body mass index [BMI] 30.0-30.9, adult; E11.42 Type 2 diabetes mellitus with diabetic polyneuropathy | CPT/HCPCS: 11042; A6209; A6402; Z7610 ==

== ENCOUNTER 2018-02-08 09:20 | Outpatient (CLI) | payer MEDICARE, MEDICAID | END 2018-02-08 23:59 | disposition home or self-care (01) | LOC: WOU 09:20 | PROVIDERS: ATTEND Podiatrist Foot & Ankle Surgery | DX: E11.621 Type 2 diabetes mellitus with foot ulcer (principal); L97.512 Non-pressure chronic ulcer of other part of right foot with fat layer exposed; L97.522 Non-pressure chronic ulcer of other part of left foot with fat layer exposed; S81.811A Laceration without foreign body, right lower leg, initial encounter; X58.XXXA Exposure to other specified factors, initial encounter; Y92.89 Other specified places as the place of occurrence of the external cause; T23.232A Burn of second degree of multiple left fingers (nail), not including thumb, initial encounter; T31.0 Burns involving less than 10% of body surface; X08.8XXA Exposure to other specified smoke, fire and flames, initial encounter; Z79.84 Long term (current) use of oral hypoglycemic drugs | CPT/HCPCS: 11042; 16020; A6209; A6402; G0463; Z7610 ==

== ENCOUNTER 2018-02-11 08:37 | Outpatient (CLI) | payer MEDICARE, MEDICAID | END 2018-02-11 23:59 | disposition home or self-care (01) | LOC: RAD 08:37 | PROVIDERS: ATTEND Podiatrist Foot & Ankle Surgery | DX: E11.621 Type 2 diabetes mellitus with foot ulcer (principal); L97.519 Non-pressure chronic ulcer of other part of right foot with unspecified severity; M85.871 Other specified disorders of bone density and structure, right ankle and foot | CPT/HCPCS: 73630-TC ==

== ENCOUNTER 2018-02-11 09:12 | Outpatient (CLI) | payer MEDICARE, MEDICAID | END 2018-02-11 23:59 | disposition home health service (06) | LOC: WOU 09:12 | PROVIDERS: ATTEND Podiatrist Foot & Ankle Surgery | DX: E11.621 Type 2 diabetes mellitus with foot ulcer (principal); L97.512 Non-pressure chronic ulcer of other part of right foot with fat layer exposed; L97.522 Non-pressure chronic ulcer of other part of left foot with fat layer exposed; T23.222D Burn of second degree of single left finger (nail) except thumb, subsequent encounter; X08.8XXD Exposure to other specified smoke, fire and flames, subsequent encounter; E11.610 Type 2 diabetes mellitus with diabetic neuropathic arthropathy; E11.42 Type 2 diabetes mellitus with diabetic polyneuropathy; Z79.84 Long term (current) use of oral hypoglycemic drugs; Z79.899 Other long term (current) drug therapy | CPT/HCPCS: 11042; A6209; A6402; Z7610 ==

== ENCOUNTER 2018-02-15 08:42 | Outpatient (CLI) | payer MEDICARE, MEDICAID | END 2018-02-15 23:59 | disposition home health service (06) | LOC: WOU 08:42 | PROVIDERS: ATTEND Podiatrist Foot & Ankle Surgery | DX: E11.621 Type 2 diabetes mellitus with foot ulcer (principal); L97.512 Non-pressure chronic ulcer of other part of right foot with fat layer exposed; L97.522 Non-pressure chronic ulcer of other part of left foot with fat layer exposed; E11.610 Type 2 diabetes mellitus with diabetic neuropathic arthropathy; Z79.84 Long term (current) use of oral hypoglycemic drugs | CPT/HCPCS: A6209; A6402; G0463; Z7610 ==

== ENCOUNTER 2018-02-22 08:25 | Outpatient (CLI) | payer MEDICARE, MEDICAID | END 2018-02-22 23:59 | disposition home health service (06) | LOC: WOU 08:25 | PROVIDERS: ATTEND Podiatrist Foot & Ankle Surgery | DX: E11.621 Type 2 diabetes mellitus with foot ulcer (principal); L97.521 Non-pressure chronic ulcer of other part of left foot limited to breakdown of skin; E11.610 Type 2 diabetes mellitus with diabetic neuropathic arthropathy; Z79.84 Long term (current) use of oral hypoglycemic drugs; E11.42 Type 2 diabetes mellitus with diabetic polyneuropathy | CPT/HCPCS: A6209; A6402; G0463; Z7610 ==

== ENCOUNTER 2018-03-08 08:20 | Outpatient (CLI) | payer MEDICARE, MEDICAID | END 2018-03-08 23:59 | disposition home health service (06) | LOC: WOU 08:20 | PROVIDERS: ATTEND Podiatrist Foot & Ankle Surgery | DX: Z09 Encounter for follow-up examination after completed treatment for conditions other than malignant neoplasm (principal); Z86.31 Personal history of diabetic foot ulcer; E11.610 Type 2 diabetes mellitus with diabetic neuropathic arthropathy; E11.42 Type 2 diabetes mellitus with diabetic polyneuropathy; Z79.84 Long term (current) use of oral hypoglycemic drugs | CPT/HCPCS: A6402; G0463; Z7610 ==

== ENCOUNTER 2018-04-05 08:15 | Outpatient (CLI) | payer MEDICARE, MEDICAID | END 2018-04-05 23:59 | disposition home health service (06) | LOC: WOU 08:15 | PROVIDERS: ATTEND Podiatrist Foot & Ankle Surgery | DX: L60.3 Nail dystrophy (principal); E11.610 Type 2 diabetes mellitus with diabetic neuropathic arthropathy; E11.41 Type 2 diabetes mellitus with diabetic mononeuropathy; G58.9 Mononeuropathy, unspecified; M20.42 Other hammer toe(s) (acquired), left foot; M20.41 Other hammer toe(s) (acquired), right foot; E66.9 Obesity, unspecified; Z68.30 Body mass index [BMI] 30.0-30.9, adult; Z79.84 Long term (current) use of oral hypoglycemic drugs | CPT/HCPCS: G0463; Z7610 ==

== ENCOUNTER 2018-05-17 11:15 | Outpatient (CLI) | payer MEDICARE, MEDICAID | END 2018-05-17 23:59 | disposition home health service (06) | LOC: WOU 11:15 | PROVIDERS: ATTEND Podiatrist Foot & Ankle Surgery | DX: E11.621 Type 2 diabetes mellitus with foot ulcer (principal); L97.414 Non-pressure chronic ulcer of right heel and midfoot with necrosis of bone; E11.40 Type 2 diabetes mellitus with diabetic neuropathy, unspecified; E11.610 Type 2 diabetes mellitus with diabetic neuropathic arthropathy; M20.42 Other hammer toe(s) (acquired), left foot; M20.41 Other hammer toe(s) (acquired), right foot; M20.12 Hallux valgus (acquired), left foot; M20.11 Hallux valgus (acquired), right foot; E66.9 Obesity, unspecified; Z68.29 Body mass index [BMI] 29.0-29.9, adult | CPT/HCPCS: 11044; 87070-TC; A6402; Z7610 ==

== ENCOUNTER 2018-05-24 08:10 | Outpatient (CLI) | payer MEDICARE, MEDICAID | END 2018-05-24 23:59 | disposition home health service (06) | LOC: WOU 08:10 | PROVIDERS: ATTEND Podiatrist Foot & Ankle Surgery | DX: E11.621 Type 2 diabetes mellitus with foot ulcer (principal); L97.514 Non-pressure chronic ulcer of other part of right foot with necrosis of bone; E11.610 Type 2 diabetes mellitus with diabetic neuropathic arthropathy; E66.9 Obesity, unspecified; Z68.29 Body mass index [BMI] 29.0-29.9, adult; M20.42 Other hammer toe(s) (acquired), left foot; M20.41 Other hammer toe(s) (acquired), right foot; M20.12 Hallux valgus (acquired), left foot; M20.11 Hallux valgus (acquired), right foot | CPT/HCPCS: 11044; 73630; A6402; Z7610 ==

== ENCOUNTER 2018-05-26 10:41 | Outpatient (CLI) | payer MEDICARE, MEDICAID ==
[2018-05-26 11:29] LABS: BASOPHILS % (AUTO) 0.6 % (0.0-2.0); EOSINOPHILS % (AUTO) 3.2 % (0.0-6.0); HEMATOCRIT 33 % (33-45); HEMOGLOBIN 10.4 g/dL (11.5-14.8); LYMPHOCYTES # (AUTO) 1.1 /CMM (0.8-4.8); LYMPHOCYTES % (AUTO) 19.2 % (20.0-44.0); MEAN CORPUSCULAR HGB CONC 32 g/dl (31.0-36.0); MEAN CORPUSCULAR VOLUME 82 fL (82-100); MONOCYTES # (AUTO) 0.3 /CMM (0.1-1.30); MONOCYTES % (AUTO) 5.3 % (2.0-12.0); NEUTROPHILS # (AUTO) 4.1 /CMM (1.8-8.9); NEUTROPHILS % (AUTO) 71.7 % (43.0-81.0); PLATELET COUNT (AUTO) 474 /CMM (150-450); RDW COEFFICIENT OF VARIATION 16.5 (11.5-15.0); RED BLOOD CELL COUNT(AUTO) 3.98 MIL/uL (4.0-5.2); WHITE BLOOD COUNT (AUTO) 5.7 K/uL (4.3-11.0)
[2018-05-26 11:38] LABS: CALCIUM, SERUM 9.5 mg/dL (8.5-10.1); CARBON DIOXIDE 24 mmol/L (21-32); CHLORIDE 104 mmol/L (98-107); CREATININE 1.5 mg/dL (0.6-1.3); GLUCOSE 122 mg/dL (74-106); SODIUM SERUM 137 mmol/L (136-145); UREA NITROGEN, BLOOD 21 mg/dL (7-18)
[2018-05-26 11:45] LABS: POTASSIUM 6.4 mmol/L (3.5-5.1)
[2018-05-26] MEDS ORDERED: ATOR20TA PO (16:42)
[2018-05-26] MEDS ORDERED: AMOX1TAB16 PO (16:42)
== END 2018-05-26 23:59 | disposition home or self-care (01) ==
LOC: WOU 10:41
PROVIDERS: ATTEND Registered Nurse
DX: E11.621 Type 2 diabetes mellitus with foot ulcer (principal); L97.519 Non-pressure chronic ulcer of other part of right foot with unspecified severity; E11.610 Type 2 diabetes mellitus with diabetic neuropathic arthropathy; E66.9 Obesity, unspecified; B95.61 Methicillin susceptible Staphylococcus aureus infection as the cause of diseases classified elsewhere
CPT/HCPCS: 36415; 80048-TC; 85025-TC; A6402; G0463; Z7610

== ENCOUNTER 2018-05-26 12:35 | Inpatient (IN) | payer MEDICARE, MEDICAID ==
[~2018-05-26] VITALS: Ht 167.6 cm; Wt 83.9 kg
--- NOTE | 2018-05-26 12:38 | NUR ---
PT BIB FROM [facility]OUND [facility]ARE CLINIC TO ER BED 09. PT WAS SEND HERE FOR ELEVATED K+ LEVEL. DENIES ANY MEDICAL COMPLAINT AT THIS TIME. AWAITING MD CERON.
--- NOTE | 2018-05-26 13:07 | NUR ---
DR BIGGS AT BEDSIDE FOR EVAL.
--- NOTE | 2018-05-26 13:30 | NUR ---
IV LINE STARTED BLOOD DRAWN AND SENT TO LAB.
[2018-05-26 13:42] LABS: BASOPHILS # (AUTO) 0.1 /CMM (0.0-0.2); BASOPHILS % (AUTO) 1.2 % (0.0-2.0); EOSINOPHILS % (AUTO) 3.5 % (0.0-6.0); HEMATOCRIT 34 % (33-45); LYMPHOCYTES # (AUTO) 1.7 /CMM (0.8-4.8); MEAN CORPUSCULAR HGB CONC 33 g/dl (31.0-36.0); MEAN CORPUSCULAR VOLUME 81 fL (82-100); MONOCYTES # (AUTO) 0.5 /CMM (0.1-1.30); MONOCYTES % (AUTO) 7.2 % (2.0-12.0); NEUTROPHILS # (AUTO) 3.8 /CMM (1.8-8.9); NEUTROPHILS % (AUTO) 61.1 % (43.0-81.0); PLATELET COUNT (AUTO) 447 /CMM (150-450); RDW COEFFICIENT OF VARIATION 15.4 (11.5-15.0); RED BLOOD CELL COUNT(AUTO) 4.16 MIL/uL (4.0-5.2); WHITE BLOOD COUNT (AUTO) 6.4 K/uL (4.3-11.0)
[2018-05-26 13:51] LABS: CALCIUM, SERUM 9.5 mg/dL (8.5-10.1); CARBON DIOXIDE 26 mmol/L (21-32); CHLORIDE 105 mmol/L (98-107); CREATININE 1.4 mg/dL (0.6-1.3); GLUCOSE 106 mg/dL (74-106); SODIUM SERUM 137 mmol/L (136-145); UREA NITROGEN, BLOOD 20 mg/dL (7-18)
[2018-05-26 13:55] LABS: POTASSIUM 6.7 mmol/L (3.5-5.1)
[2018-05-26] MEDS ORDERED: SODIUM POLYSTYRENE SULFONATE 15 G/60 ML BOTTLE ONE (14:30)
[2018-05-26] MEDS ORDERED: SODIUM POLYSTYRENE SULFONATE 15 G/60 ML BOTTLE PO ONE (14:30)
--- NOTE | 2018-05-26 14:52 | NUR ---
PT IS ASSIGNED TO TELE RM#: [id number]
--- NOTE | 2018-05-26 15:12 | NUR ---
REPORT GIVEN TO DELISA. PT AWAITING TRANSFER TO FLOOR.
[2018-05-26 16:00] VITALS: BP 152/71
--- NOTE | 2018-05-26 16:00 | NUR ---
PATIENT ARRIVED TO UNIT FROM ER PATIENT MOHAWK SPEAKING. FLAT SCREEN WORKER AND SON AT BEDSIDE. PATIENT AOX3. NONLABORED BREATHING NOTED ON ROOM AIR. DENYING CHEST PAIN. PATIENT SR- ST ON TELE MONITOR (HR 90S-105) IV LINE ON RIGHT AC PATENT AND INTACT. PER PATIENT AND SON , PATIENT HAD X2 BOWEL MOVEMENTS IN THE ER AFTER THE ADMINISTRATION OF KAYEXALATE IN ER. PATIENT ASSISTED TO THE BATHROOM. PATIENT ABLE TO HAVE ANOTERH BOWEL MOVEMENT. PER PATIENT, SHE WAS AT THE WOUND CLINIC TODAY. PER PATIENT, SHE HAD A WOUND DEBRIDEMENT ON HER "RIGHT FOOT WOUND" BY DR GALICIA. PATIENT REFUSING SKIN CHECK OF WOUND, AND REFUSING PICTURE OF RIGHT FOOT WOUND. BED IN LOWEST LOCKED POSITION. CALL LIGHT WITHIN REACH. CLOTILDE LIU NP, INFORMED OF ADMISSION
[2018-05-26] MEDS ORDERED: AMOX1TAB16 PO (16:42)
[2018-05-26] MEDS ORDERED: ATOR20TA PO (16:42)
--- NOTE | 2018-05-26 16:42 | NUR ---
PER CLOTILDE LIU, COMMODITY INDUSTRY ANALYST- LOW NA, CONSISTENT CARB DIET FOR DINNER VERBAL READBACK DONE
--- NOTE | 2018-05-26 17:29 | NUR ---
PATIENT HAD 4 BOWEL MOVEMENTS TOTAL SINCE KAYEXALATE ADMINISTRATION IN ER. PER CLOTILDE LIU, NO REPEAT BMP TONIGHT. CBC AND BMP TOMORROW AM. VERBAL READBACK DONE
[2018-05-26] MEDS ORDERED: ONDANSETRON HCL/PF 4 MG/2 ML VIAL IVP PRN (19:30)
[2018-05-26] MEDS ORDERED: IV NS 0.9% 1,000 ML IV PRN (19:30)
[2018-05-26] MEDS ORDERED: MAGNESIUM HYDROXIDE 30 ML UDC PO PRN (19:30)
[2018-05-26] MEDS ORDERED: Z GUARD REMEDY 2 OZ OINT TP PRN (19:30)
[2018-05-26] MEDS ORDERED: ACETAMINOPHEN 325 MG TABLET PO PRN (19:30)
[2018-05-26] MEDS ORDERED: HYDROCODONE/APAP 5/325MG 1 EACH TABLET PO PRN (19:30)
--- NOTE | 2018-05-26 19:36 | NUR ---
PATIENT UPPER SORBIAN SPEAKING.. PATIENT AOX3. NONLABORED BREATHING NOTED ON ROOM AIR. DENYING CHEST PAIN. PATIENT SR- ST ON TELE MONITOR (HR 90S-105) IV LINE ON RIGHT AC PATENT AND INTACT, GAUGE 20. BED IN LOWEST LOCKED POSITION. CALL LIGHT WITHIN REACH. PATIENT STILL REFUSING WOUND PICTURES. BENEFITS AND RISKS EXPLAINED.
[2018-05-26 20:00] VITALS: BP 110/56
[2018-05-26] MEDS ORDERED: CEFTRIAXONE 1 G in IV D5W 50 ML IV SCH (21:00)
[2018-05-26] MEDS: HEPARIN SODIUM, PORCINE 5000 UNITS/1 ML VIAL SQ SCH (21:00)
--- NOTE | 2018-05-26 23:21 | NUR ---
RN NOTE PATIENT IS ALERT/ORIENTED X 4, REFUSED SKIN PICTURES, EXPLAINED ALL RISKS AND BENEFITS, STILL REFUSED
[2018-05-27] VITALS: BP_SYST 135; BP_DIAS 58; BP_DIAS 98
[2018-05-27 04:00] VITALS: BP 139/60
[2018-05-27 06:31] LABS: BASOPHILS # (AUTO) 0.1 /CMM (0.0-0.2); EOSINOPHILS % (AUTO) 3.5 % (0.0-6.0); HEMATOCRIT 30 % (33-45); HEMOGLOBIN 9.6 g/dL (11.5-14.8); LYMPHOCYTES # (AUTO) 1.6 /CMM (0.8-4.8); LYMPHOCYTES % (AUTO) 29.2 % (20.0-44.0); MEAN CORPUSCULAR HGB CONC 32 g/dl (31.0-36.0); MEAN CORPUSCULAR VOLUME 84 fL (82-100); MONOCYTES # (AUTO) 0.4 /CMM (0.1-1.30); MONOCYTES % (AUTO) 7.6 % (2.0-12.0); NEUTROPHILS # (AUTO) 3.2 /CMM (1.8-8.9); NEUTROPHILS % (AUTO) 58.7 % (43.0-81.0); PLATELET COUNT (AUTO) 372 /CMM (150-450); RDW COEFFICIENT OF VARIATION 16.4 (11.5-15.0); RED BLOOD CELL COUNT(AUTO) 3.55 MIL/uL (4.0-5.2); WHITE BLOOD COUNT (AUTO) 5.5 K/uL (4.3-11.0)
[2018-05-27 06:56] LABS: CALCIUM, SERUM 8.8 mg/dL (8.5-10.1); CARBON DIOXIDE 25 mmol/L (21-32); CHLORIDE 107 mmol/L (98-107); CREATININE 1.4 mg/dL (0.6-1.3); GLUCOSE 107 mg/dL (74-106); MAGNESIUM 1.9 mg/dL (1.8-2.4); PHOSPHORUS 4.6 mg/dL (2.5-4.9); POTASSIUM 5.7 mmol/L (3.5-5.1); SODIUM SERUM 140 mmol/L (136-145); UREA NITROGEN, BLOOD 22 mg/dL (7-18)
[2018-05-27 07:00] LABS: CHOLESTEROL 200 mg/dL (<200); HDL CHOLESTEROL 36 mg/dL (40-60); LDL 137 mg/dL (0-99); TRIGLYCERIDES 159 mg/dL (30-150)
--- NOTE | 2018-05-27 07:55 | NUR ---
CHANDELIER MAKER NOTE RECEIVED PATIENT IN BED ,ALL NEEDS ATTENDED , ALERT ,ORIENTED , SPEAKS PORTUGUESE ON TELE MONITOR SR 77 , RT AC HL INTACT ,NO S\S INFECTION NOTED , ON IVF ORDERED, BED IN LOWEST AND LOCKED POSITION CALL LIGHT WITHIN REACH,PLANOF CARE DISCUSSED WITH PATIENT, BED ALARM IN PLACE FOR SAFETY , NO SOB NOTED NO C\O PAIN OR DISCOMFORT AT THIS TIME
[2018-05-27 08:00] VITALS: BP 116/65
[2018-05-27] MEDS: HEPARIN SODIUM, PORCINE 5000 UNITS/1 ML VIAL SQ SCH (08:06)
--- NOTE | 2018-05-27 10:04 | NUR ---
HIM DIRECTOR NOTE DR RUSSEL GONZALES ORDERED TO GET CONSENT FOR RT FOOT DEBRIDEMENT , SON AT BEDSIDE EXPLAINED ABOUT PROCEDURE , SON SENT SIGNED
--- NOTE | 2018-05-27 11:15 | NUR ---
WOUND CARE CONSULT WOUND CARE RECEIVED CONSULT FOR EVALUATION. WOUND CARE WILL DEFER CONSULT AND ALL TREATMENT PLANS TO SURGICAL TEAM WHO ARE CURRENTLY FOLLOWING. PATIENT WITH CURRENT ELVA AT 17. ALL PRESSURE ULCER PREVENTION MEASURES ARE NOTED TO BE IN PLACE AT THIS TIME.
[2018-05-27 12:00] VITALS: BP 134/58
--- NOTE | 2018-05-27 12:45 | NUR ---
TYING MACHINE OPERATOR LUMBER NOTE DR SWARTZ DP AT BEDSIDE RT FOOR DEBRIDEMENT DONE KEEP AFFECTED ARE CLEAN DRY
--- NOTE | 2018-05-27 13:14 | NUR ---
JEANNINE ZAFAR NOTE PER BERYL ZAFAR NP OK TO DISCHARGE HOME, ALSO UA COLLECTED ORDERED , WILL CONT TO MONITOR CLOSELY Addendum: 05/27/18 at 1447 by PADDY ROY RN beryl zafar np aware that k 5.7 still o to discharge home
--- NOTE | 2018-05-27 15:49 | NUR ---
COMMAND CENTER OFFICER NOTE DISCHARGE INSTRUCTION GIVEN TO SON, UNDERSTOOD, TELE AND HL ON RT AC AND RT HAND REMOVED, NO S\S INFECTION OR BLEEDING NOTED , INSTRUCTED HOW TO TAKE HOME MEDS AND POSSIBLE SIDE EFFECTS , AND FOLLOW UP WITH PRIMARY CARE DOCTOR AND FOOT DOCTOR AT WOUND CLINIC FOR RT FOOT WOUND , SON AND PATENT UNDERSTAND INSTRUCTION, BELONGING CHECKED , TAKEN TO LOBBY ON W\C WITH NATURAL GAS ENGINEER AND SON ,WENT HOME IN STABLE CONDITION
[2018-05-27 20:58] LABS: CHLORIDE,URINE RANDOM 150 mmol/L (55-125); POTASSIUM RNDM,URINE 38 mmol/L (25-125); URINE SODIUM, RANDOM 151 mmol/l (40-220)
[2018-05-27 23:36] LABS: OSMOLALITY,URINE 576 mOS/kg (340-1090)
== END 2018-05-27 15:47 | disposition home or self-care (01) | DRG 405 ==
LOC: ER 12:37 → TELE1 15:22
PROVIDERS: ADMIT Nurse Practitioner Acute Care; ATTEND Nurse Practitioner Acute Care
PROC: 0QBL0ZZ Excision of Right Tarsal, Open Approach (ICD-10-PCS; principal; 2018-05-27)
DX: E87.5 Hyperkalemia (principal); N17.0 Acute kidney failure with tubular necrosis; E11.22 Type 2 diabetes mellitus with diabetic chronic kidney disease; K21.9 Gastro-esophageal reflux disease without esophagitis; N18.9 Chronic kidney disease, unspecified; I12.9 Hypertensive chronic kidney disease with stage 1 through stage 4 chronic kidney disease, or unspecified chronic kidney disease; E78.5 Hyperlipidemia, unspecified; D63.8 Anemia in other chronic diseases classified elsewhere; E11.42 Type 2 diabetes mellitus with diabetic polyneuropathy; E11.610 Type 2 diabetes mellitus with diabetic neuropathic arthropathy; E11.621 Type 2 diabetes mellitus with foot ulcer; G89.4 Chronic pain syndrome; M19.90 Unspecified osteoarthritis, unspecified site; L97.514 Non-pressure chronic ulcer of other part of right foot with necrosis of bone; Z79.84 Long term (current) use of oral hypoglycemic drugs
CPT/HCPCS: 36415; 71045-TC; 80048-TC; 80061-TC; 82436-TC; 83735-TC; 83935-TC; 84100-TC; 84133-TC; 84300-TC; 85025-TC; 87081-TC; A4606; A6402; J0696; J1644; J7030; J7060; Z7610

== ENCOUNTER 2018-05-31 10:32 | Outpatient (CLI) | payer MEDICARE, MEDICAID ==
[~2018-05-31 10:32] MED LIST changes: +AMOX1TAB16 PO; +ATOR20TA PO; -HYDR-548 PO; -OLME1TAB16 PO; -[UNRECOGNIZED DRUG - CODE] PO
== END 2018-05-31 23:59 | disposition home health service (06) ==
LOC: WOU 10:32
PROVIDERS: ATTEND Podiatrist Foot & Ankle Surgery
DX: E11.621 Type 2 diabetes mellitus with foot ulcer (principal); L97.414 Non-pressure chronic ulcer of right heel and midfoot with necrosis of bone; E11.610 Type 2 diabetes mellitus with diabetic neuropathic arthropathy; E11.41 Type 2 diabetes mellitus with diabetic mononeuropathy; M20.12 Hallux valgus (acquired), left foot; M20.11 Hallux valgus (acquired), right foot; M20.42 Other hammer toe(s) (acquired), left foot; M20.41 Other hammer toe(s) (acquired), right foot
CPT/HCPCS: 11044; 97605-TC; A6402; Z7610

== ENCOUNTER 2018-05-31 12:16 | Outpatient (CLI) | payer MEDICARE, MEDICAID ==
[2018-05-31 12:16] VITALS: BP 159/77
== END 2018-05-31 23:59 | disposition home or self-care (01) ==
LOC: MSC 12:16
PROVIDERS: ATTEND Internal Medicine
DX: E11.22 Type 2 diabetes mellitus with diabetic chronic kidney disease (principal); I12.9 Hypertensive chronic kidney disease with stage 1 through stage 4 chronic kidney disease, or unspecified chronic kidney disease; N18.9 Chronic kidney disease, unspecified; Z79.84 Long term (current) use of oral hypoglycemic drugs; E11.42 Type 2 diabetes mellitus with diabetic polyneuropathy; E11.621 Type 2 diabetes mellitus with foot ulcer; L97.419 Non-pressure chronic ulcer of right heel and midfoot with unspecified severity; E11.610 Type 2 diabetes mellitus with diabetic neuropathic arthropathy; M19.90 Unspecified osteoarthritis, unspecified site; E43 Unspecified severe protein-calorie malnutrition; E66.01 Morbid (severe) obesity due to excess calories; D63.8 Anemia in other chronic diseases classified elsewhere

== ENCOUNTER 2018-06-01 19:03 | Emergency (ER) | payer MEDICARE, MEDICAID ==
[~2018-06-01] VITALS: Ht 165.1 cm; Wt 83.9 kg
[2018-06-01 19:30] VITALS: BP 148/78
--- NOTE | 2018-06-01 19:54 | NUR ---
CALLED DR FELIX, LEFT A VOICEMAIL
[2018-06-01 20:45] LABS: BASOPHILS # (AUTO) 0.1 /CMM (0.0-0.2); BASOPHILS % (AUTO) 1.7 % (0.0-2.0); EOSINOPHILS % (AUTO) 2.2 % (0.0-6.0); HEMATOCRIT 32 % (33-45); HEMOGLOBIN 10.4 g/dL (11.5-14.8); LYMPHOCYTES # (AUTO) 1.5 /CMM (0.8-4.8); LYMPHOCYTES % (AUTO) 19.5 % (20.0-44.0); MEAN CORPUSCULAR HGB CONC 33 g/dl (31.0-36.0); MEAN CORPUSCULAR VOLUME 82 fL (82-100); MONOCYTES # (AUTO) 0.4 /CMM (0.1-1.30); MONOCYTES % (AUTO) 5.5 % (2.0-12.0); NEUTROPHILS # (AUTO) 5.7 /CMM (1.8-8.9); NEUTROPHILS % (AUTO) 71.1 % (43.0-81.0); PLATELET COUNT (AUTO) 336 /CMM (150-450); RDW COEFFICIENT OF VARIATION 15.1 (11.5-15.0); WHITE BLOOD COUNT (AUTO) 7.9 K/uL (4.3-11.0)
[2018-06-01 20:59] LABS: CALCIUM, SERUM 9.1 mg/dL (8.5-10.1); CARBON DIOXIDE 23 mmol/L (21-32); CHLORIDE 108 mmol/L (98-107); CREATININE 1.6 mg/dL (0.6-1.3); GLUCOSE 142 mg/dL (74-106); POTASSIUM 5.6 mmol/L (3.5-5.1); SODIUM SERUM 138 mmol/L (136-145); UREA NITROGEN, BLOOD 31 mg/dL (7-18)
== END 2018-06-01 22:43 | disposition home or self-care (01) ==
LOC: ER 19:12
DX: E11.621 Type 2 diabetes mellitus with foot ulcer (principal); I10 Essential (primary) hypertension; K21.9 Gastro-esophageal reflux disease without esophagitis; E11.40 Type 2 diabetes mellitus with diabetic neuropathy, unspecified; Z79.82 Long term (current) use of aspirin; Z98.890 Other specified postprocedural states
CPT/HCPCS: 36415; 80048-TC; 85025-TC; A4606; Z7610

== ENCOUNTER 2018-06-03 09:07 | Outpatient (CLI) | payer MEDICARE, MEDICAID | END 2018-06-03 23:59 | disposition home health service (06) | LOC: WOU 09:07 | PROVIDERS: ATTEND Podiatrist Foot & Ankle Surgery | DX: E11.621 Type 2 diabetes mellitus with foot ulcer (principal); L97.514 Non-pressure chronic ulcer of other part of right foot with necrosis of bone; E11.610 Type 2 diabetes mellitus with diabetic neuropathic arthropathy; Z83.3 Family history of diabetes mellitus; E66.9 Obesity, unspecified; Z68.29 Body mass index [BMI] 29.0-29.9, adult; Z79.84 Long term (current) use of oral hypoglycemic drugs | CPT/HCPCS: 11044; 97605-TC; A6402; Z7610 ==

== ENCOUNTER 2018-07-15 09:12 | Outpatient (CLI) | payer MEDICARE, MEDICAID | END 2018-07-15 23:59 | disposition home health service (06) | LOC: WOU 09:12 | PROVIDERS: ATTEND Podiatrist Foot & Ankle Surgery | DX: E11.621 Type 2 diabetes mellitus with foot ulcer (principal); L97.413 Non-pressure chronic ulcer of right heel and midfoot with necrosis of muscle; E11.42 Type 2 diabetes mellitus with diabetic polyneuropathy; E66.9 Obesity, unspecified; Z68.29 Body mass index [BMI] 29.0-29.9, adult; S91.312D Laceration without foreign body, left foot, subsequent encounter; X58.XXXD Exposure to other specified factors, subsequent encounter; Z79.84 Long term (current) use of oral hypoglycemic drugs | CPT/HCPCS: 11043; A6402; Z7610 ==

== ENCOUNTER 2018-07-29 09:00 | Outpatient (CLI) | END 2018-07-29 23:59 | disposition home health service (06) | DX: E11.621 Type 2 diabetes mellitus with foot ulcer (principal); L97.513 Non-pressure chronic ulcer of other part of right foot with necrosis of muscle; E11.610 Type 2 diabetes mellitus with diabetic neuropathic arthropathy; E66.9 Obesity, unspecified; Z68.29 Body mass index [BMI] 29.0-29.9, adult; Z83.3 Family history of diabetes mellitus; Z79.84 Long term (current) use of oral hypoglycemic drugs ==

== ENCOUNTER 2018-08-05 09:00 | Outpatient (CLI) | payer MEDICARE, MEDICAID | END 2018-08-05 23:59 | disposition home health service (06) | LOC: WOU 09:00 | PROVIDERS: ATTEND Podiatrist Foot & Ankle Surgery | DX: E11.621 Type 2 diabetes mellitus with foot ulcer (principal); L97.512 Non-pressure chronic ulcer of other part of right foot with fat layer exposed; E11.610 Type 2 diabetes mellitus with diabetic neuropathic arthropathy | CPT/HCPCS: 15275; A6402; Z7610 ==

== ENCOUNTER 2018-08-12 09:00 | Outpatient (CLI) | payer MEDICARE, MEDICAID | END 2018-08-12 23:59 | disposition home health service (06) | LOC: WOU 09:00 | PROVIDERS: ATTEND Podiatrist Foot & Ankle Surgery | DX: E11.621 Type 2 diabetes mellitus with foot ulcer (principal); L97.513 Non-pressure chronic ulcer of other part of right foot with necrosis of muscle; E11.610 Type 2 diabetes mellitus with diabetic neuropathic arthropathy; E11.42 Type 2 diabetes mellitus with diabetic polyneuropathy | CPT/HCPCS: 15275; A6402; J7040; Q4133 ×2; Z7610 ==

== ENCOUNTER 2018-08-19 09:00 | Outpatient (CLI) | payer MEDICARE, MEDICAID | END 2018-08-19 23:59 | disposition home health service (06) | LOC: WOU 09:00 | PROVIDERS: ATTEND Podiatrist Foot & Ankle Surgery | DX: E11.621 Type 2 diabetes mellitus with foot ulcer (principal); L97.412 Non-pressure chronic ulcer of right heel and midfoot with fat layer exposed; L97.522 Non-pressure chronic ulcer of other part of left foot with fat layer exposed; E11.610 Type 2 diabetes mellitus with diabetic neuropathic arthropathy; E11.42 Type 2 diabetes mellitus with diabetic polyneuropathy; E66.9 Obesity, unspecified; Z68.29 Body mass index [BMI] 29.0-29.9, adult | CPT/HCPCS: 15275; A6402 ==

== ENCOUNTER 2018-08-26 08:43 | Outpatient (CLI) | payer MEDICARE, MEDICAID | END 2018-08-26 23:59 | disposition home health service (06) | LOC: WOU 08:43 | PROVIDERS: ATTEND Podiatrist Foot & Ankle Surgery | DX: E11.621 Type 2 diabetes mellitus with foot ulcer (principal); L97.512 Non-pressure chronic ulcer of other part of right foot with fat layer exposed; S91.312D Laceration without foreign body, left foot, subsequent encounter; X58.XXXD Exposure to other specified factors, subsequent encounter; E11.610 Type 2 diabetes mellitus with diabetic neuropathic arthropathy; Z83.3 Family history of diabetes mellitus; E11.42 Type 2 diabetes mellitus with diabetic polyneuropathy; Z79.84 Long term (current) use of oral hypoglycemic drugs; Z79.899 Other long term (current) drug therapy | CPT/HCPCS: 11042; A6402; A6407; Z7610 ==

== ENCOUNTER 2018-09-02 08:35 | Outpatient (CLI) | payer MEDICARE, MEDICAID | END 2018-09-02 23:59 | disposition home health service (06) | LOC: WOU 08:35 | PROVIDERS: ATTEND Podiatrist Foot & Ankle Surgery | DX: E11.621 Type 2 diabetes mellitus with foot ulcer (principal); E11.610 Type 2 diabetes mellitus with diabetic neuropathic arthropathy; E66.9 Obesity, unspecified; Z68.28 Body mass index [BMI] 28.0-28.9, adult | CPT/HCPCS: 11042; A6402 ==

== ENCOUNTER 2018-09-09 08:45 | Outpatient (CLI) | payer MEDICARE, MEDICAID | END 2018-09-09 23:59 | disposition home health service (06) | LOC: WOU 08:45 | PROVIDERS: ATTEND Podiatrist Foot & Ankle Surgery | DX: E11.621 Type 2 diabetes mellitus with foot ulcer (principal); L97.512 Non-pressure chronic ulcer of other part of right foot with fat layer exposed; E11.610 Type 2 diabetes mellitus with diabetic neuropathic arthropathy; E66.9 Obesity, unspecified; Z68.29 Body mass index [BMI] 29.0-29.9, adult; E11.42 Type 2 diabetes mellitus with diabetic polyneuropathy; Z79.84 Long term (current) use of oral hypoglycemic drugs | CPT/HCPCS: 11042; A6402 ==

== ENCOUNTER 2018-09-16 09:00 | Outpatient (CLI) | payer MEDICARE, MEDICAID | END 2018-09-16 23:59 | disposition home health service (06) | LOC: WOU 09:00 | PROVIDERS: ATTEND Podiatrist Foot & Ankle Surgery | DX: E11.621 Type 2 diabetes mellitus with foot ulcer (principal); L97.518 Non-pressure chronic ulcer of other part of right foot with other specified severity; E11.610 Type 2 diabetes mellitus with diabetic neuropathic arthropathy; Z79.84 Long term (current) use of oral hypoglycemic drugs | CPT/HCPCS: G0463; Z7610; A6402 ==

== ENCOUNTER 2018-09-23 08:45 | Outpatient (CLI) | payer MEDICARE, MEDICAID | END 2018-09-23 23:59 | disposition home health service (06) | LOC: WOU 08:45 | PROVIDERS: ATTEND Podiatrist Foot & Ankle Surgery | DX: E11.621 Type 2 diabetes mellitus with foot ulcer (principal); E11.610 Type 2 diabetes mellitus with diabetic neuropathic arthropathy; L97.512 Non-pressure chronic ulcer of other part of right foot with fat layer exposed; E11.42 Type 2 diabetes mellitus with diabetic polyneuropathy; E66.9 Obesity, unspecified; Z68.29 Body mass index [BMI] 29.0-29.9, adult; Z79.84 Long term (current) use of oral hypoglycemic drugs | CPT/HCPCS: 15275; A6402; Q4132 ==

== ENCOUNTER 2018-09-30 09:00 | Outpatient (CLI) | payer MEDICARE, MEDICAID | END 2018-09-30 23:59 | disposition home health service (06) | LOC: WOU 09:00 | PROVIDERS: ATTEND Podiatrist Foot & Ankle Surgery | DX: E11.621 Type 2 diabetes mellitus with foot ulcer (principal); L97.512 Non-pressure chronic ulcer of other part of right foot with fat layer exposed; L97.518 Non-pressure chronic ulcer of other part of right foot with other specified severity; E11.610 Type 2 diabetes mellitus with diabetic neuropathic arthropathy; E11.42 Type 2 diabetes mellitus with diabetic polyneuropathy; Z79.84 Long term (current) use of oral hypoglycemic drugs | CPT/HCPCS: 11042; 15275; A6402; Q4133 ==

== ENCOUNTER 2018-10-07 09:30 | Outpatient (CLI) | payer MEDICARE, MEDICAID | END 2018-10-07 23:59 | disposition home health service (06) | LOC: WOU 09:30 | PROVIDERS: ATTEND Podiatrist Foot & Ankle Surgery | DX: E11.621 Type 2 diabetes mellitus with foot ulcer (principal); L97.512 Non-pressure chronic ulcer of other part of right foot with fat layer exposed; L97.522 Non-pressure chronic ulcer of other part of left foot with fat layer exposed; E11.610 Type 2 diabetes mellitus with diabetic neuropathic arthropathy; E66.9 Obesity, unspecified; Z68.29 Body mass index [BMI] 29.0-29.9, adult; E11.42 Type 2 diabetes mellitus with diabetic polyneuropathy; Z79.84 Long term (current) use of oral hypoglycemic drugs; Z79.899 Other long term (current) drug therapy | CPT/HCPCS: 15275; A6402; Q4133 ==

== ENCOUNTER 2018-10-14 09:15 | Outpatient (CLI) | payer MEDICARE, MEDICAID | END 2018-10-14 23:59 | disposition home health service (06) | LOC: WOU 09:15 | PROVIDERS: ATTEND Podiatrist Foot & Ankle Surgery | DX: E11.621 Type 2 diabetes mellitus with foot ulcer (principal); L97.412 Non-pressure chronic ulcer of right heel and midfoot with fat layer exposed; E11.610 Type 2 diabetes mellitus with diabetic neuropathic arthropathy; L97.522 Non-pressure chronic ulcer of other part of left foot with fat layer exposed; E66.9 Obesity, unspecified; Z68.29 Body mass index [BMI] 29.0-29.9, adult; E11.42 Type 2 diabetes mellitus with diabetic polyneuropathy; Z79.84 Long term (current) use of oral hypoglycemic drugs | CPT/HCPCS: 11042; 82962-TC; A6402 ==

== ENCOUNTER 2018-10-21 09:00 | Outpatient (CLI) | payer MEDICARE, MEDICAID | END 2018-10-21 23:59 | disposition home health service (06) | LOC: WOU 09:00 | PROVIDERS: ATTEND Podiatrist Foot & Ankle Surgery | DX: E11.621 Type 2 diabetes mellitus with foot ulcer (principal); L97.512 Non-pressure chronic ulcer of other part of right foot with fat layer exposed; L97.522 Non-pressure chronic ulcer of other part of left foot with fat layer exposed; E11.610 Type 2 diabetes mellitus with diabetic neuropathic arthropathy; E66.9 Obesity, unspecified; Z68.29 Body mass index [BMI] 29.0-29.9, adult; E11.42 Type 2 diabetes mellitus with diabetic polyneuropathy; R26.9 Unspecified abnormalities of gait and mobility; Z79.84 Long term (current) use of oral hypoglycemic drugs | CPT/HCPCS: 15275; A6402; Q4133 ==

== ENCOUNTER 2018-10-28 09:45 | Outpatient (CLI) | payer MEDICARE, MEDICAID | END 2018-10-28 23:59 | disposition home health service (06) | LOC: WOU 09:45 | PROVIDERS: ATTEND Podiatrist Foot & Ankle Surgery | DX: E11.621 Type 2 diabetes mellitus with foot ulcer (principal); L97.512 Non-pressure chronic ulcer of other part of right foot with fat layer exposed; E11.610 Type 2 diabetes mellitus with diabetic neuropathic arthropathy; E11.42 Type 2 diabetes mellitus with diabetic polyneuropathy; Z83.3 Family history of diabetes mellitus; L97.522 Non-pressure chronic ulcer of other part of left foot with fat layer exposed; Z79.84 Long term (current) use of oral hypoglycemic drugs | CPT/HCPCS: 15275; A6402; Q4133 ==

== ENCOUNTER 2018-11-04 10:35 | Outpatient (CLI) | payer MEDICARE, MEDICAID | END 2018-11-04 23:59 | disposition home health service (06) | LOC: WOU 10:35 | PROVIDERS: ATTEND Podiatrist Foot & Ankle Surgery | DX: E11.621 Type 2 diabetes mellitus with foot ulcer (principal); L97.512 Non-pressure chronic ulcer of other part of right foot with fat layer exposed; L97.522 Non-pressure chronic ulcer of other part of left foot with fat layer exposed; E11.610 Type 2 diabetes mellitus with diabetic neuropathic arthropathy; E11.42 Type 2 diabetes mellitus with diabetic polyneuropathy; E66.9 Obesity, unspecified; Z68.29 Body mass index [BMI] 29.0-29.9, adult; Z79.84 Long term (current) use of oral hypoglycemic drugs; Z79.899 Other long term (current) drug therapy | CPT/HCPCS: 11042; A6402 ==

== ENCOUNTER 2018-11-10 09:08 | Outpatient (CLI) | payer MEDICARE, MEDICAID | END 2018-11-10 23:59 | disposition home or self-care (01) | LOC: RAD 09:08 | PROVIDERS: ATTEND Podiatrist Foot & Ankle Surgery | DX: E11.621 Type 2 diabetes mellitus with foot ulcer (principal); L97.519 Non-pressure chronic ulcer of other part of right foot with unspecified severity; M25.871 Other specified joint disorders, right ankle and foot | CPT/HCPCS: 73630-TC ==

== ENCOUNTER 2018-11-11 08:43 | Outpatient (CLI) | payer MEDICARE, MEDICAID | END 2018-11-11 23:59 | disposition home health service (06) | LOC: WOU 08:43 | PROVIDERS: ATTEND Podiatrist Foot & Ankle Surgery | DX: E11.621 Type 2 diabetes mellitus with foot ulcer (principal); L97.512 Non-pressure chronic ulcer of other part of right foot with fat layer exposed; L97.521 Non-pressure chronic ulcer of other part of left foot limited to breakdown of skin; E11.610 Type 2 diabetes mellitus with diabetic neuropathic arthropathy; E11.42 Type 2 diabetes mellitus with diabetic polyneuropathy; E66.9 Obesity, unspecified; Z68.29 Body mass index [BMI] 29.0-29.9, adult; Z79.84 Long term (current) use of oral hypoglycemic drugs | CPT/HCPCS: 11042; A6402 ==

== ENCOUNTER 2018-11-18 08:30 | Outpatient (CLI) | payer MEDICARE, MEDICAID | END 2018-11-18 23:59 | disposition home health service (06) | LOC: WOU 08:30 | PROVIDERS: ATTEND Podiatrist Foot & Ankle Surgery | DX: E11.621 Type 2 diabetes mellitus with foot ulcer (principal); L97.528 Non-pressure chronic ulcer of other part of left foot with other specified severity; E11.610 Type 2 diabetes mellitus with diabetic neuropathic arthropathy; E11.42 Type 2 diabetes mellitus with diabetic polyneuropathy | CPT/HCPCS: A6402 ==

== ENCOUNTER 2018-11-29 08:40 | Outpatient (CLI) | payer MEDICARE, MEDICAID | END 2018-11-29 23:59 | disposition home health service (06) | LOC: WOU 08:40 | PROVIDERS: ATTEND Podiatrist Foot & Ankle Surgery | DX: E11.610 Type 2 diabetes mellitus with diabetic neuropathic arthropathy (principal); Z79.84 Long term (current) use of oral hypoglycemic drugs; E66.9 Obesity, unspecified; Z68.29 Body mass index [BMI] 29.0-29.9, adult; Z86.31 Personal history of diabetic foot ulcer ==

== ENCOUNTER 2018-12-06 08:40 | Outpatient (CLI) | payer MEDICARE, MEDICAID | END 2018-12-06 23:59 | disposition home health service (06) | LOC: WOU 08:40 | PROVIDERS: ATTEND Podiatrist Foot & Ankle Surgery | DX: Z09 Encounter for follow-up examination after completed treatment for conditions other than malignant neoplasm (principal); Z86.31 Personal history of diabetic foot ulcer; E11.610 Type 2 diabetes mellitus with diabetic neuropathic arthropathy; L60.3 Nail dystrophy; Z79.84 Long term (current) use of oral hypoglycemic drugs | CPT/HCPCS: G0463 ==

== ENCOUNTER 2019-01-20 14:02 | Outpatient (CLI) | payer MEDICARE, MEDICAID | END 2019-01-20 23:59 | disposition home health service (06) | LOC: WOU 14:02 | PROVIDERS: ATTEND Podiatrist Foot & Ankle Surgery | DX: E11.621 Type 2 diabetes mellitus with foot ulcer (principal); L97.512 Non-pressure chronic ulcer of other part of right foot with fat layer exposed; E11.610 Type 2 diabetes mellitus with diabetic neuropathic arthropathy; E11.40 Type 2 diabetes mellitus with diabetic neuropathy, unspecified; L60.3 Nail dystrophy; R26.9 Unspecified abnormalities of gait and mobility; Z83.3 Family history of diabetes mellitus; Z79.84 Long term (current) use of oral hypoglycemic drugs | CPT/HCPCS: 11042; A6209; A6402 ==

== ENCOUNTER 2019-01-31 08:45 | Outpatient (CLI) | payer MEDICARE, MEDICAID | END 2019-01-31 23:59 | disposition home health service (06) | LOC: WOU 08:45 | PROVIDERS: ATTEND Podiatrist Foot & Ankle Surgery | DX: E11.621 Type 2 diabetes mellitus with foot ulcer (principal); L97.522 Non-pressure chronic ulcer of other part of left foot with fat layer exposed; L97.512 Non-pressure chronic ulcer of other part of right foot with fat layer exposed; E11.610 Type 2 diabetes mellitus with diabetic neuropathic arthropathy; E11.42 Type 2 diabetes mellitus with diabetic polyneuropathy; Z79.84 Long term (current) use of oral hypoglycemic drugs; L60.3 Nail dystrophy | CPT/HCPCS: 11042; A6209; A6402 ==

== ENCOUNTER 2019-02-07 09:00 | Outpatient (CLI) | payer MEDICARE, MEDICAID ==
[2019-03-20] MEDS ORDERED: CEFA1VIA19 IJ (17:24)
== END 2019-02-07 23:59 | disposition home health service (06) ==
LOC: WOU 09:00
PROVIDERS: ATTEND Podiatrist Foot & Ankle Surgery
DX: E11.621 Type 2 diabetes mellitus with foot ulcer (principal); L97.512 Non-pressure chronic ulcer of other part of right foot with fat layer exposed; L97.522 Non-pressure chronic ulcer of other part of left foot with fat layer exposed; E11.622 Type 2 diabetes mellitus with other skin ulcer; L97.812 Non-pressure chronic ulcer of other part of right lower leg with fat layer exposed; E11.610 Type 2 diabetes mellitus with diabetic neuropathic arthropathy; L60.3 Nail dystrophy; Z79.84 Long term (current) use of oral hypoglycemic drugs
CPT/HCPCS: 11042; A6402

== ENCOUNTER 2019-02-14 09:35 | Outpatient (CLI) | payer MEDICAID, MEDICARE ==
[2019-03-20] MEDS ORDERED: CEFA1VIA19 IJ (17:24)
== END 2019-02-14 23:59 | disposition home health service (06) ==
LOC: WOU 09:35
PROVIDERS: ATTEND Podiatrist Foot & Ankle Surgery
DX: E11.621 Type 2 diabetes mellitus with foot ulcer (principal); E11.622 Type 2 diabetes mellitus with other skin ulcer; L97.512 Non-pressure chronic ulcer of other part of right foot with fat layer exposed; L97.522 Non-pressure chronic ulcer of other part of left foot with fat layer exposed; L97.812 Non-pressure chronic ulcer of other part of right lower leg with fat layer exposed; E11.610 Type 2 diabetes mellitus with diabetic neuropathic arthropathy; L60.3 Nail dystrophy; M20.42 Other hammer toe(s) (acquired), left foot; M20.41 Other hammer toe(s) (acquired), right foot
CPT/HCPCS: 11042; A6402

== ENCOUNTER 2019-02-24 09:00 | Outpatient (CLI) | payer MEDICARE ==
[2019-03-20] MEDS ORDERED: CEFA1VIA19 IJ (17:24)
== END 2019-02-24 23:59 | disposition home health service (06) ==
LOC: WOU 09:00
PROVIDERS: ATTEND Podiatrist Foot & Ankle Surgery
DX: E11.621 Type 2 diabetes mellitus with foot ulcer (principal); E11.622 Type 2 diabetes mellitus with other skin ulcer; L97.512 Non-pressure chronic ulcer of other part of right foot with fat layer exposed; L97.812 Non-pressure chronic ulcer of other part of right lower leg with fat layer exposed; E11.610 Type 2 diabetes mellitus with diabetic neuropathic arthropathy; L60.3 Nail dystrophy; L97.522 Non-pressure chronic ulcer of other part of left foot with fat layer exposed; Z79.84 Long term (current) use of oral hypoglycemic drugs
CPT/HCPCS: 11042; A6402

== ENCOUNTER 2019-03-03 09:50 | Outpatient (CLI) | payer MEDICARE | END 2019-03-03 23:59 | disposition home or self-care (01) | LOC: WOU 09:50 | PROVIDERS: ATTEND Podiatrist Foot & Ankle Surgery | DX: E11.621 Type 2 diabetes mellitus with foot ulcer (principal); L97.512 Non-pressure chronic ulcer of other part of right foot with fat layer exposed; E11.622 Type 2 diabetes mellitus with other skin ulcer; L97.812 Non-pressure chronic ulcer of other part of right lower leg with fat layer exposed; E11.610 Type 2 diabetes mellitus with diabetic neuropathic arthropathy; L60.3 Nail dystrophy; Z79.84 Long term (current) use of oral hypoglycemic drugs | CPT/HCPCS: 11042; A6402 ==

== ENCOUNTER 2019-03-10 08:35 | Outpatient (CLI) | payer MEDICARE ==
[2019-03-20] MEDS ORDERED: CEFA1VIA19 IJ (17:24)
== END 2019-03-10 23:59 | disposition home health service (06) ==
LOC: WOU 08:35
PROVIDERS: ATTEND Podiatrist Foot & Ankle Surgery
DX: E11.621 Type 2 diabetes mellitus with foot ulcer (principal); L97.512 Non-pressure chronic ulcer of other part of right foot with fat layer exposed; E11.622 Type 2 diabetes mellitus with other skin ulcer; L97.812 Non-pressure chronic ulcer of other part of right lower leg with fat layer exposed; E11.610 Type 2 diabetes mellitus with diabetic neuropathic arthropathy; E11.42 Type 2 diabetes mellitus with diabetic polyneuropathy; T23.022A Burn of unspecified degree of single left finger (nail) except thumb, initial encounter; X10.0XXA Contact with hot drinks, initial encounter; Y93.G9 Activity, other involving cooking and grilling; Y92.010 Kitchen of single-family (private) house as the place of occurrence of the external cause; Z79.84 Long term (current) use of oral hypoglycemic drugs
CPT/HCPCS: 11042; A6209; G0463

== ENCOUNTER 2019-03-14 13:22 | Inpatient (IN) | payer MEDICAID, MEDICARE ==
[~2019-03-14] VITALS: Ht 152.4 cm; Wt 86.2 kg
[~2019-03-14 13:22] MED LIST changes: -CEFA1VIA19 IJ; -DICL100G16 TP
--- NOTE | 2019-03-14 13:45 | NUR ---
BIB RN from wound clininc "Not feeling well/BP low/Tachycardia". PT DOES NOT APPEAR TO BE IN DISTRESS. CZECH-SPEAKING, SON AT BEDSIDE SPEAKS ISRAELI. PT AOX3, HYPOTENSIVE, RR EVEN AND UNLABORED ON RA. WOUNDS ON RIGHT FOOT AND LEFT 1ST FINGER TREATED AT WOUND CLINIC ETL APPLICATION DEVELOPER. OTHERWISE SKIN INTACT. ON MONITOR, MADE COMFORTABLE, AND READY FOR MD CERON.
--- NOTE | 2019-03-14 13:55 | NUR ---
IV ACCESS OBTAINED AND BLOOD DRAWN, SENT TO STAT LAB. PT TAMIKO WELL.
[2019-03-14 13:58] LABS: BASOPHILS % (AUTO) 0.1 % (0.0-2.0); HEMATOCRIT 32 % (33-45); LYMPHOCYTES # (AUTO) 0.2 /CMM (0.8-4.8); MEAN CORPUSCULAR HGB CONC 32 g/dl (31.0-36.0); MEAN CORPUSCULAR VOLUME 79 fL (82-100); MONOCYTES # (AUTO) 0.1 /CMM (0.1-1.30); MONOCYTES % (AUTO) 0.9 % (2.0-12.0); NEUTROPHILS # (AUTO) 16.2 /CMM (1.8-8.9); PLATELET COUNT (AUTO) 188 /CMM (150-450); WHITE BLOOD COUNT (AUTO) 16.5 K/uL (4.3-11.0)
[2019-03-14] MEDS ORDERED: DICL100G16 TP (14:02)
[2019-03-14 14:08] LABS: CALCIUM, SERUM 8.5 mg/dL (8.5-10.1); CARBON DIOXIDE 16 mmol/L (21-32); CHLORIDE 98 mmol/L (98-107); GLUCOSE 164 mg/dL (74-106); SODIUM SERUM 133 mmol/L (136-145); UREA NITROGEN, BLOOD 40 mg/dL (7-18)
[2019-03-14 14:14] LABS: ALANINE AMINOTRANSFERASE 22 U/L (12-78); ALBUMIN 2.4 g/dL (3.4-5.0); ALKALINE PHOSPHATASE 74 U/L (46-116); ASPARTATE AMINOTRANSFERASE 32 U/L (15-37); BILIRUBIN,DIRECT 0.2 mg/dL (0.0-0.2); BILIRUBIN,TOTAL 0.4 mg/dL (0.2-1.0); TOTAL PROTEIN, SERUM 6.3 g/dL (6.4-8.2)
[2019-03-14] MEDS ORDERED: PIPERACILLIN /TAZOBACTAM 3.375 G in IV D5W 50 ML IV ONE (14:30)
[2019-03-14] MEDS ORDERED: IV NS 0.9% 1,000 ML BAG IV ONE (14:30)
[2019-03-14] MEDS ORDERED: VANCOMYCIN 1 GM in IV D5W 250 ML IV ONE (14:30)
--- NOTE | 2019-03-14 14:57 | NUR ---
URINE COLLECTED VIA STRAIGHT CATH PER PROTOCOL AND SENT TO STAT LAB. ADJUSTER ELECTRICAL CONTACTS AT BEDSIDE FOR CAST REMOVAL.
[2019-03-14 15:00] LABS: APPEARANCE,URINE Cloudy (CLEAR); BILIRUBIN,URINE MODERATE (NEGATIVE); BLOOD, URINE Negative Ery/uL (NEGATIVE); KETONES,URINE 15 (NEGATIVE); LEUKOCYTE ESTERASE ,URINE Small (NEGATIVE); NITRITE, URINE Negative (NEGATIVE); PROTEIN,URINE 30 mg/dl (NEGATIVE); UGLUCOSE Negative (NEGATIVE)
[2019-03-14 15:01] LABS: COLOR,URINE Dark Yellow (YELLOW)
--- NOTE | 2019-03-14 15:10 | NUR ---
CALLED [employer]. MUTUAL FUND SALES AGENT WAS PAGED.
[2019-03-14 15:12] LABS: BACTERIA,URINE Rare /HPF (None Seen); SQUAMOUS EPITHELIAL CELL,UR Moderate /HPF (None Seen)
[2019-03-14] MEDS ORDERED: Z GUARD REMEDY 2 OZ OINT TP PRN (16:00)
[2019-03-14] MEDS ORDERED: MAGNESIUM HYDROXIDE 30 ML UDC PO PRN (16:00)
[2019-03-14] MEDS ORDERED: HYDROCODONE/APAP 5/325MG 1 EACH TABLET PO PRN (16:00)
[2019-03-14] MEDS ORDERED: DEXTROSE 50%-WATER 50 ML DISP.SYRIN IV PRN (16:00)
[2019-03-14] MEDS ORDERED: MAG HYDROX/AL HYDROX/SIMETH 30 ML UDC PO PRN (16:00)
--- NOTE | 2019-03-14 16:55 | NUR ---
REPORT GIVEN TO ANDRADE RIBEIRO FOR 310-1 T
[2019-03-14] MEDS ORDERED: FEE PK DOSING 1 MIN EA MC ONE (17:07)
--- NOTE | 2019-03-14 17:30 | NUR ---
VANCO CONT TO INFUSE ON THE UNIT
--- NOTE | 2019-03-14 17:30 | NUR ---
PT TRANSFERRED TO UNIT VIA [facility]
[2019-03-14 17:55] VITALS: BP 116/65
--- NOTE | 2019-03-14 17:55 | NUR ---
TREE AND SHRUB TECHNICIAN NOTES RECEIVED PATIENT FROM ER 85Y/OLD PATIENT KAZAKH SPEAKER FEMALE ON Dx OF SEPSIS TELE. TELE MONITOR ON SR-114/130. PATIENT A/O X3/4 NO ACUTER RESPIRATORY DISTRESS, V/S TAKEN BP- 116/65,P-130,R-25,O2-96NC, T-99 ROOM AIR. BS-145 MG/DL, NO COVERAGE GIVEN BECAUSE REFUSED. PATIENT FEELING COLD COVERED WITH WARM BLANKETS. INFUSING NS AT 75 ML/HR ON LEFT AC AREA INTACT. PATIENT HAS EDEMA BILATERAL LOWER EXTREMITIES AND RED, WARM TO TOUCH, PATIENT HAS SOME WOUNDS FOLLOWING WOUND CENTER FOR DAILY TREATMENT. PATIENT CONTINENT. FAMILY NEXT TO THE BED. UNABLE TO TAKE PICTURE PATIENT REFUSED AT THIS TIME. CALL LIGHT WITHIN TO REACH. CONTINUED MONITORING.
[2019-03-14] MEDS: BLOOD SUGAR DIAGNOSTIC 1 EACH STRIP IN SCH ×2 (18:20→21:58)
--- NOTE | 2019-03-14 18:22 | NUR ---
RN NOTES ADMINISTERED NARCO 5/325MG PO PRN FOR GENERALIZED PAIN 02/23 PER PATIENT REQUEST, V/S TAKEN BP 116//65, P-114, CONTINUED MONITORING.
--- NOTE | 2019-03-14 19:00 | NUR ---
RN NOTES MEDICATION WERE ADMINISTERED FOR PAIN EFFECTIVE. CONTINUED MONITORING. PATIENT STABLE.
--- NOTE | 2019-03-14 19:35 | NUR ---
rn notes: clarified with gwen ritchie, admit to order to icu
--- NOTE | 2019-03-14 20:06 | NUR ---
ICU NOTES RECEIVED VIA BED FROM 3WEST TO RM 256 W/ ADMITTING DX OF SEPSIS.PT AWAKE ALERT,SPEAKS BURMESE ,BUT UNDERSTAND VERY LITTLE CZECH.ON O2 VIA N/C AT 2LPM W/SAT OF 100%.PICTURES TAKEN,SEE PROGRESS NOTES.
--- NOTE | 2019-03-14 20:11 | NUR ---
RN NOTES PATIENT TRANSFERRING TO ICU BECAUSE PER HOSPITALIST INSPECTOR WATCH TRAIN TRACY ORDERS. REPORT GIVEN ICE ANDRADE ROBERTSON. RN VERBALIZED UNDERSTANDING. PICTURE UNABLE TO TAKEN BECAUSE PATIENT STATED LATER. FINISHED ADMISSION. ENDORSED ICU NURSE FOLLOW PLAN OF CARE.
[2019-03-14 20:15] VITALS: BP 120/59
--- NOTE | 2019-03-14 20:20 | NUR ---
ASSISTANT PROFESSOR OF SURGERY NOTES: TRANSFER TO ICU VIA ACLS PROTOCOL, FAMILY PRESENT, AWARE OF TRANSFER. CHAIN PULLER CRESENCIO WILL TAKE OVER TO TAKE PICTURES OF SKIN ISSUES. ENDORSED TO ANDRADE LY.
--- NOTE | 2019-03-14 20:45 | NUR ---
ICU NOTES FAMILY AT BEDSIDE VISITING,UPDATED W/ PT'S CONDITION.INFORMED OF VISITING HOURS.
[2019-03-14 21:00] VITALS: BP 111/55
[2019-03-14 22:00] VITALS: BP 106/53
[2019-03-14 23:00] VITALS: BP 94/57
[2019-03-14] MEDS: IV NS 0.9% 1,000 ML IV PRN (23:00)
[2019-03-15] VITALS (27 sets, daily range): BP systolic 75–112; BP diastolic 38–63
[2019-03-15] MEDS ORDERED: PIPERACILLIN /TAZOBACTAM 2.25 G VIAL IV ONE (00:23)
[2019-03-15] MEDS: PIPERACILLIN /TAZOBACTAM 2.25 G in IV D5W 50 ML IV SCH ×5 (00:25→23:57)
--- NOTE | 2019-03-15 03:21 | NUR ---
ICU NOTES INCONTINENT OF LARGE AMT.URINE AND LARGE SOFT BOWEL MOVEMENT,CLEANSED AND DIAPER CHANGED.
[2019-03-15 04:51] LABS: BASOPHILS % (AUTO) 0.2 % (0.0-2.0); HEMATOCRIT 31 % (33-45); LYMPHOCYTES # (AUTO) 0.1 /CMM (0.8-4.8); LYMPHOCYTES % (AUTO) 0.8 % (20.0-44.0); MEAN CORPUSCULAR HGB CONC 32 g/dl (31.0-36.0); MEAN CORPUSCULAR VOLUME 78 fL (82-100); MONOCYTES # (AUTO) 0.2 /CMM (0.1-1.30); MONOCYTES % (AUTO) 1.2 % (2.0-12.0); NEUTROPHILS # (AUTO) 16.1 /CMM (1.8-8.9); NEUTROPHILS % (AUTO) 97.8 % (43.0-81.0); PLATELET COUNT (AUTO) 150 /CMM (150-450); RED BLOOD CELL COUNT(AUTO) 4.03 MIL/uL (4.0-5.2); WHITE BLOOD COUNT (AUTO) 16.5 K/uL (4.3-11.0)
[2019-03-15 05:06] LABS: IRON, SERUM 6 ug/dl (50-175); TOTAL IRON BINDING CAPACITY 188 ug/dl (250-450)
[2019-03-15 05:11] LABS: CALCIUM, SERUM 7.4 mg/dL (8.5-10.1); CARBON DIOXIDE 20 mmol/L (21-32); CHLORIDE 100 mmol/L (98-107); CREATININE 3.1 mg/dL (0.6-1.3); GLUCOSE 86 mg/dL (74-106); PHOSPHORUS 3.7 mg/dL (2.5-4.9); POTASSIUM 4.8 mmol/L (3.5-5.1); SODIUM SERUM 132 mmol/L (136-145); UREA NITROGEN, BLOOD 47 mg/dL (7-18)
[2019-03-15 05:14] LABS: CHOLESTEROL 119 mg/dL (<200); FERRITIN 590 ng/mL (8-388); HDL CHOLESTEROL 16 mg/dL (40-60); LDL 48 mg/dL (0-99); THYROID STIMULATING HORMONE 1.845 uIU/mL (0.358-3.74); TRIGLYCERIDES 242 mg/dL (30-150)
[2019-03-15 05:21] LABS: MAGNESIUM 1.2 mg/dL (1.8-2.4)
--- NOTE | 2019-03-15 06:00 | NUR ---
ICU NOTES ATTEMPTED TO START AN IV LINE BUT UNSUCCESSFUL.SBP 90'S W/ MAP OF 65.OFFERS NO COMPLAINTS.MONITOR SHOWS SINUS TACH.
--- NOTE | 2019-03-15 07:05 | NUR ---
RN NOTES RECEIVED PT ON BED, ALERT/ SPANISH SPEAKING, ON 2L O2 N/C , NO SOB NOTED, ON TELE SR- ST , NS AT 75CC/HR RUNNING VIA L AC IV G 20 SITE CLEAN, DRY AND INTACT, SR UP x3, CALL LIGHT WITHIN EASY REACH BED LOCKED AND IN LOWEST POSITION, CONTINUE TO MONITOR.
[2019-03-15] MEDS: IV NS 0.9% 1,000 ML IV PRN ×2 (07:12→21:14)
--- NOTE | 2019-03-15 07:12 | NUR ---
ICU NOTES REPORT AND CARE OF PT. GIVEN TO AUTUMN Bianchi
[2019-03-15] MEDS: BLOOD SUGAR DIAGNOSTIC 1 EACH STRIP IN SCH ×4 (07:41→21:14)
--- NOTE | 2019-03-15 07:42 | NUR ---
RN NOTES ZOSYN IN NOT AVAILABLE AT THIS TIME , PHARMACY NOTIFED .
[2019-03-15] MEDS: ONDANSETRON HCL/PF 4 MG/2 ML VIAL IVP PRN ×2 (13:00→18:53)
--- NOTE | 2019-03-15 13:00 | NUR ---
RN NOTES NO MAGNESIUM REPLACEMENT PER DR SALAZAR .
[2019-03-15 15:13] LABS: BILIRUBIN,URINE NEGATIVE (NEGATIVE); BLOOD, URINE 1+ Ery/uL (NEGATIVE); COLOR,URINE YELLOW (YELLOW); KETONES,URINE NEGATIVE (NEGATIVE); LEUKOCYTE ESTERASE ,URINE NEGATIVE (NEGATIVE); NITRITE, URINE NEGATIVE (NEGATIVE); PH,URINE 5.5 (5.0-8.0); PROTEIN,URINE TRACE mg/dl (NEGATIVE); UGLUCOSE NEGATIVE (NEGATIVE); UROBILINOGEN,URINE 0.2 EU/dL (0.2)
[2019-03-15 15:21] LABS: CREATININE, URINE 41.8 MG/DL (30.0-125.0); URINE TOTAL PROTEIN 67.5 mg/dL (0-11.9)
[2019-03-15 15:33] LABS: APPEARANCE,URINE HAZY (CLEAR); BACTERIA,URINE Rare /HPF (None Seen); SQUAMOUS EPITHELIAL CELL,UR Few /HPF (None Seen); WBC,URINE 0-2 /HPF (0-3)
[2019-03-15 15:34] LABS: URINE AMORPHOUS URATE Moderate /HPF (None Seen)
--- NOTE | 2019-03-15 15:50 | NUR ---
RN NOTES PT'S SBP IN 90'S MOSTLY, HR IN 100'S AT TIMES , ARCELIA BREAUX NOTIFED, TRANSFERRED TO TELE ORDER CANCELLED AT THIS TIME .
--- NOTE | 2019-03-15 15:50 | NUR ---
RN NOTES ARCELIA MARTINEZ NOTIFED REGARDING HEART RYTHEM WITH NO P WAVES. PT STABLE, CONTINUE TO MONITOR .
[2019-03-15 15:51] LABS: EOSINOPHIL,URINE None Seen
[2019-03-15] MEDS: ACETAMINOPHEN 325 MG TABLET PO PRN (18:11)
--- NOTE | 2019-03-15 18:30 | NUR ---
RN NOTES LOTRIMIN CREAM IS NOT AVAILABLE FROM PHARMACY . PHARMACY NOTIFIED .
--- NOTE | 2019-03-15 18:55 | NUR ---
RN NOTES SUPPORTIVE FAMILY AT THE BEDSIDE, PT C/O NAUSEA , ZOFRAN GIVEN PER MD ORDER . NS AT 75CC/HR RUNNING VIA R AC IV SITE G 20 , SITE CLEAN, DRY AND INTACT, SR UP x3, CALL LIGHT WITHIN EASY REACH, BED LOCKED AND IN LOWEST, WILL ENDOSE TO ECONOMICS INSTRUCTOR NURSE FOR CONTINUITY OF CARE.
--- NOTE | 2019-03-15 19:00 | NUR ---
RN NOTES MILLIE SCIENTIFIC SPECIALIST NOTIFED REGARDING EKG RESULTS , CONTROLLED A.FIB, PT JOSE ANY DISTRESS , RESTING IN BED , WILL ENDOSE TO VEHICLE OPERATOR TECHNICIAN NURSE FOR CONTINUITY OF CARE.
[2019-03-15] MEDS: CLOTRIMAZOLE 1% 15 GM TUBE TP SCH (19:03)
--- NOTE | 2019-03-15 19:05 | NUR ---
SEAMING MACHINE OPERATOR NOTE PT RESTING WITH HOB ELEVATED, AOX3, SPEECH CLEAR, CONTROLLED AFIB ON MONITOR, PER AM NURSE IS AWARE, PT IS ON 2L O2 VIA NC, NO S/SX OF CARDIAC OR RESPIRATORY DISTRESS, DENIES PAIN CURRENTLY, SKIN KEPT CLEAN AND DRY,LAC #20G WITH NS AT 75 ML/HR, PATENT FLUSHING WELL, SAFETY MAINTAINED AT ALL TIMES BED IN LOW LOCKED POSITION, CALL LIGHT WITHIN REACH, WILL CONTINUE TO MONITOR FOR ANY CHANGES IN CONDITION.
[2019-03-16] VITALS (13 sets, daily range): BP systolic 96–121; BP diastolic 39–57
[2019-03-16 04:50] LABS: BASOPHILS % (AUTO) 0.2 % (0.0-2.0); EOSINOPHILS % (AUTO) 1.3 % (0.0-6.0); HEMATOCRIT 30 % (33-45); HEMOGLOBIN 9.8 g/dL (11.5-14.8); LYMPHOCYTES # (AUTO) 0.5 /CMM (0.8-4.8); LYMPHOCYTES % (AUTO) 2.7 % (20.0-44.0); MEAN CORPUSCULAR HGB CONC 33 g/dl (31.0-36.0); MEAN CORPUSCULAR VOLUME 78 fL (82-100); MONOCYTES # (AUTO) 0.2 /CMM (0.1-1.30); MONOCYTES % (AUTO) 1.4 % (2.0-12.0); NEUTROPHILS # (AUTO) 16.1 /CMM (1.8-8.9); NEUTROPHILS % (AUTO) 94.4 % (43.0-81.0); PLATELET COUNT (AUTO) 130 /CMM (150-450); RED BLOOD CELL COUNT(AUTO) 3.87 MIL/uL (4.0-5.2); WHITE BLOOD COUNT (AUTO) 17.1 K/uL (4.3-11.0)
[2019-03-16 05:07] LABS: ALANINE AMINOTRANSFERASE 27 U/L (12-78); ALBUMIN 1.7 g/dL (3.4-5.0); ALKALINE PHOSPHATASE 77 U/L (46-116); ASPARTATE AMINOTRANSFERASE 34 U/L (15-37); BILIRUBIN,TOTAL 0.5 mg/dL (0.2-1.0); CALCIUM, SERUM 7.2 mg/dL (8.5-10.1); CARBON DIOXIDE 19 mmol/L (21-32); CHLORIDE 105 mmol/L (98-107); CREATININE 3.1 mg/dL (0.6-1.3); GLUCOSE 79 mg/dL (74-106); MAGNESIUM 1.5 mg/dL (1.8-2.4); PHOSPHORUS 4.3 mg/dL (2.5-4.9); POTASSIUM 4.2 mmol/L (3.5-5.1); SODIUM SERUM 136 mmol/L (136-145); TOTAL PROTEIN, SERUM 5.3 g/dL (6.4-8.2); UREA NITROGEN, BLOOD 56 mg/dL (7-18)
[2019-03-16 05:11] LABS: CREATINE KINASE, TOTAL 175 U/L (26-192)
[2019-03-16] MEDS: PIPERACILLIN /TAZOBACTAM 2.25 G in IV D5W 50 ML IV SCH ×2 (05:17→12:20)
--- NOTE | 2019-03-16 07:00 | NUR ---
CARE CENTER MANAGER OPENING NOTES RECEIVED PT LYING ON BED,ALERT/ORIENTED X3 WITH BENGALI SPEAKING.ON TELE HR IS A FIB WITH 84 CONTROLLED.ON 2 LPM O2 VIA NC CONTINUOUSLY,NO SOB AND ACUTE DISTRESS NOTED.IV LINE IS ON LEFT AC G20 WITH .9%NS @75ML/HR AND RIGHT FA G22,SL.SITE IS CLEAN,DRY AND INTACT.NO INFILTRATION NOTED.BED IS IN LOW POSITION AND LOCKED.CALL LIGHT IS WITHIN REACH.WILL CONTINUE TO MONITOR THE PT CLOSELY.
[2019-03-16] MEDS: INSULIN REGULAR, HUMAN 100 UNIT/ML 3 ML VIAL SQ PRN (07:56)
[2019-03-16] MEDS: BLOOD SUGAR DIAGNOSTIC 1 EACH STRIP IN SCH ×4 (07:56→22:23)
--- NOTE | 2019-03-16 09:00 | NUR ---
PROPOSAL REVIEW ANALYST FROM ICU NOTES RECEIVED REPORT FROM [place] ZAFAR. PATIENT CAME IN VIA GURNEY. SON IN LAW AT BEDSIDE. PATIENT AWAKE AND ALERT. POLISH SPEAKING. UNDERSTANDS BASIC INDONESIAN. ON 2L NC. ON TELE MONITOR, CONTROLLED AFIB AT 77. HAS RLE CELLULITIS. LEFT AC #20 NS RUNNING AT 75 ML/HR. RFA #22 SL. MG WAS LOW AT 1.5. 2 BAGS WILL BE REPLACE TODAY. BED LOCKED AND IN LOWEST POSITION. CALL LIGHT WITHIN REACH. WILL CONT TO MONITOR
--- NOTE | 2019-03-16 09:30 | NUR ---
EXTRUSION DIE COORDINATORSPORTS ANALYST NOTES PT TRANSFERRED TO [place] TELE ROOM 117-1.PT IS CLEAN AND DRY.ALL THE BELONGINGS HAS DONE AND VITAL SIGNS ARE WNL.ON 2 LPM O2 VIA NC CONTINUOUSLY.NO SOB AND ACUTE DISTRESS NOTED.NO COMPLICATIONS NOTED.REPORT GIVEN TO ANDRADE MOYER IN [place].
[2019-03-16] MEDS: CLOTRIMAZOLE 1% 15 GM TUBE TP SCH ×2 (09:44→17:53)
[2019-03-16] MEDS: Magnesium 1GM/D5W 100ML PREMIX 100 ML IV SCH ×2 (10:39→15:06)
[2019-03-16] MEDS: ONDANSETRON HCL/PF 4 MG/2 ML VIAL IVP PRN (10:46)
--- NOTE | 2019-03-16 10:49 | NUR ---
RN NOTES PATIENT VOMITED AND FEELING NAUSEA. ADMINISTERED ZOFRAN. WILL CHECK PT AGAIN LATER, DAUGHTER AT BEDSIDE STATES HER MOM USUALLY GETS NAUSEATED
[2019-03-16] MEDS ORDERED: NEOMY SULF/BACITRAC ZN/POLY 15 GM TUBE TP PRN (11:30)
[2019-03-16] MEDS ORDERED: VANCOMYCIN 1 GM in IV D5W 250 ML IV SCH (16:00)
--- NOTE | 2019-03-16 16:32 | NUR ---
RN NOTES LAB CALLED, PATIENT IS POSITIVE FOR BLOOD CX FOR BETA HEMOLYTIC STREP GROUP G, WITH 4 BOTTLES. MADE AWARE
[2019-03-16] MEDS: IV NS 0.9% 1,000 ML IV PRN (17:27)
[2019-03-16] MEDS: CEFAZOLIN 1 GM in IV NS 0.9% 50 ML IV SCH (17:30)
[2019-03-16] MEDS: LACTOBACILLUS RHAMNOSUS GG 1 EACH CAP.SPRINK PO SCH (17:52)
--- NOTE | 2019-03-16 18:54 | NUR ---
RN CLOSING NOTE PT A/O X3 FOR CHINESE SPEAKING ONLY. ON TELE MONITOR CONTROLLED AFIB AT 77. ON NS 2L SATURATING 100%. R FOREARM #22 NS AT 75 ML/HR AND LEFT AC 20 SL PATENT, INTACT AND FLUSHED WELL. NO RESPIRATORY OR CARDIAC DISTRESS AT THIS TIME. MG REPLACED. BED AT LOSET POSITION, LOCKED AND SIDE RAILS ARE UP. BED ALARM ON. WILL ENDORSE TO THE SHOE CEMENTER NURSE FOR JOHNNY.
--- NOTE | 2019-03-16 20:00 | NUR ---
RN NOTE PT A/O X3 FOR ARABIC SPEAKING ONLY. ON TELE MONITOR CONTROLLED AFIB AT 88. ON NS 2L SATURATING 100%. R FOREARM G#22 NS AT 75 ML/HR AND LEFT AC 20 SL PATENT, INTACT AND FLUSHING WELL. NO RESPIRATORY OR CARDIAC DISTRESS AT THIS TIME. BED AT LOWEST POSITION, LOCKED AND SIDE RAILS ARE UPX2. BED ALARM ON. CALL LIGHT IN REACH. FAMILY MEMBERS ARE AT THE BEDSIDE.WILL CONTINUE TO MONITOR PATIENT CLOSELY.
[2019-03-17] VITALS: BP 131/58
[2019-03-17 04:00] VITALS: BP 135/51
[2019-03-17 07:09] LABS: CALCIUM, SERUM 7.2 mg/dL (8.5-10.1); CARBON DIOXIDE 17 mmol/L (21-32); CHLORIDE 107 mmol/L (98-107); CREATININE 2.6 mg/dL (0.6-1.3); GLUCOSE 85 mg/dL (74-106); POTASSIUM 3.6 mmol/L (3.5-5.1); SODIUM SERUM 138 mmol/L (136-145); UREA NITROGEN, BLOOD 54 mg/dL (7-18)
[2019-03-17 07:10] LABS: BASOPHILS % (AUTO) 0.3 % (0.0-2.0); EOSINOPHILS % (AUTO) 0.6 % (0.0-6.0); HEMATOCRIT 27 % (33-45); HEMOGLOBIN 8.8 g/dL (11.5-14.8); LYMPHOCYTES # (AUTO) 1.9 /CMM (0.8-4.8); LYMPHOCYTES % (AUTO) 13.6 % (20.0-44.0); MEAN CORPUSCULAR HGB CONC 33 g/dl (31.0-36.0); MEAN CORPUSCULAR VOLUME 76 fL (82-100); MONOCYTES # (AUTO) 0.4 /CMM (0.1-1.30); MONOCYTES % (AUTO) 2.6 % (2.0-12.0); NEUTROPHILS # (AUTO) 11.4 /CMM (1.8-8.9); NEUTROPHILS % (AUTO) 82.9 % (43.0-81.0); PLATELET COUNT (AUTO) 101 /CMM (150-450); RED BLOOD CELL COUNT(AUTO) 3.51 MIL/uL (4.0-5.2); WHITE BLOOD COUNT (AUTO) 13.8 K/uL (4.3-11.0)
--- NOTE | 2019-03-17 07:30 | NUR ---
RN OPENING NOTE PATIENT IN BED ALERT AND ORITNTED X4 MONGOLIAN SPEAKING. SINUS RHYTHM ON MONITOR. DIAPER, KEPT CLENA AND DRY. BED IN LOW POSITION, SITTER AT BEDSIDE, ASSIST WITH FEEDING. WOUND CARE TO COME TODAY AND ASSESS, CHANGE DRESSINGS. BED IN LOW POSITON, FAMILY AT BEDISE. SAFETY MEASURE IN PLACE. IV PATENT AND INTACT.
[2019-03-17] MEDS: CLOTRIMAZOLE 1% 15 GM TUBE TP SCH ×2 (08:26→17:21)
[2019-03-17] MEDS: BLOOD SUGAR DIAGNOSTIC 1 EACH STRIP IN SCH ×4 (08:26→21:39)
[2019-03-17] MEDS: LACTOBACILLUS RHAMNOSUS GG 1 EACH CAP.SPRINK PO SCH ×2 (08:39→17:17)
[2019-03-17 10:00] VITALS: BP 144/56
[2019-03-17 12:00] VITALS: BP 128/60
[2019-03-17 12:07] LABS: *SPE A/G RATIO 0.8 (0.7-1.7); *SPE ALBUMIN 2.1 g/dL (2.9-4.4); *SPE ALPHA-1-GLOBULIN 0.4 g/dL (0.0-0.4); *SPE ALPHA-2-GLOBULIN 0.8 g/dL (0.4-1.0); *SPE BETA GLOBULIN 0.9 g/dL (0.7-1.3); *SPE GLOBULIN, TOTAL 2.7 g/dL (2.2-3.9); *SPE M-SPIKE 0.1 g/dL (Not Observed); *SPEGAMMA GLOBULIN 0.6 g/dL (0.4-1.8)
[2019-03-17] MEDS: ACETAMINOPHEN 325 MG TABLET PO PRN (12:17)
--- NOTE | 2019-03-17 12:42 | NUR ---
WOUND CARE CONSULT WOUND CARE RECEIVED CONSULT FOR WOUNDS. WOUND CARE WILL DEFER CONSULT AND ALL TREATMENT PLANS TO PLASTIC SURGICAL TEAM INCLUDING DPM DR FELIX WHO ARE CURRENTLY FOLLOWING THIS PATIENT. PATIENT WITH ELVA AT 18, ALL PRESSURE ULCER PREVENTION MEASURES ARE NOTED TO BE IN PLACE AT THIS TIME. WILL SEE PRN.
--- NOTE | 2019-03-17 14:00 | NUR ---
RN NOTE WOUND DR VISIT WOUND DR CAME BY TO ASSESS AND CHANGE DRESSING ON BILATERAL EXTREMETIES.
[2019-03-17 16:00] VITALS: BP 145/60
[2019-03-17] MEDS: CEFAZOLIN 1 GM in IV NS 0.9% 50 ML IV SCH (17:17)
--- NOTE | 2019-03-17 18:44 | NUR ---
RN CLOSING NOTE PATIENT IN BED ALERT AND ORIENTED X4 LUXEMBOURGISH SPEAKING. WOUND CARE DONE , BLACK OXIDE OPERATOR AT BEDSIDE KEPT CLEAN AND DRY. PO INTAKE INCREASED IV PATENT AND INTACT. BED IN LOW POSITION FAMILY AT BEDISE. WILL CONTINUE TO MONITOR. ENDORSE TO ACADEMIC SUPPORT COORDINATOR.
[2019-03-17 20:00] VITALS: BP 122/62
[2019-03-17] MEDS: IV NS 0.9% 1,000 ML IV PRN (21:30)
[2019-03-17] MEDS: INSULIN REGULAR, HUMAN 100 UNIT/ML 3 ML VIAL SQ PRN (21:38)
[2019-03-18 04:00] VITALS: BP_SYST 127; BP_DIAS 52; BP_DIAS 56
[2019-03-18] MEDS: INSULIN REGULAR, HUMAN 100 UNIT/ML 3 ML VIAL SQ PRN ×4 (06:25→23:40)
[2019-03-18] MEDS: BLOOD SUGAR DIAGNOSTIC 1 EACH STRIP IN SCH ×4 (06:25→22:00)
--- NOTE | 2019-03-18 07:10 | NUR ---
MS RN OPENING NOTES RECEIVED PT LYING ON BED,ALERT/ORIENTED X4 WITH UKRAINIAN SPEAKING.ON NC 2LPM O2 CONTINUOUSLY,NO SOB AND ACUTE DISTRESS NOTED.RESPIRATION IS EVEN AND NONLABORED.LEFT LEG CELLULITIS PRESENT WITH DRESSING,INTACT.NO PAIN NOTED FOR NOW.IV LINE IS ON LEFT AC G20,SL AND ON RIGHT FA G22 WITH IV NS @75ML/HR IS RUNNING.IV SITE IS CLEAN,DRY AND INTACT.NO INFILTRATION NOTED.BED IS IN LOW POSITION AND LOCKED.CALL LIGHT IS WITHIN REACH.WILL CONTINUE TO MONITOR THE PT CLOSELY.
[2019-03-18 07:38] LABS: BASOPHILS % (AUTO) 0.4 % (0.0-2.0); EOSINOPHILS % (AUTO) 1.4 % (0.0-6.0); HEMATOCRIT 27 % (33-45); HEMOGLOBIN 8.7 g/dL (11.5-14.8); LYMPHOCYTES # (AUTO) 0.9 /CMM (0.8-4.8); LYMPHOCYTES % (AUTO) 10.1 % (20.0-44.0); MEAN CORPUSCULAR HGB CONC 33 g/dl (31.0-36.0); MEAN CORPUSCULAR VOLUME 77 fL (82-100); MONOCYTES # (AUTO) 0.3 /CMM (0.1-1.30); MONOCYTES % (AUTO) 3.1 % (2.0-12.0); NEUTROPHILS # (AUTO) 7.2 /CMM (1.8-8.9); PLATELET COUNT (AUTO) 91 /CMM (150-450); RED BLOOD CELL COUNT(AUTO) 3.47 MIL/uL (4.0-5.2); WHITE BLOOD COUNT (AUTO) 8.5 K/uL (4.3-11.0)
[2019-03-18 07:39] LABS: ALANINE AMINOTRANSFERASE 25 U/L (12-78); ALKALINE PHOSPHATASE 170 U/L (46-116); ASPARTATE AMINOTRANSFERASE 44 U/L (15-37); BILIRUBIN,TOTAL 0.4 mg/dL (0.2-1.0); CALCIUM, SERUM 7.6 mg/dL (8.5-10.1); CARBON DIOXIDE 20 mmol/L (21-32); CHLORIDE 108 mmol/L (98-107); CREATININE 2.2 mg/dL (0.6-1.3); GLUCOSE 84 mg/dL (74-106); PHOSPHORUS 4.1 mg/dL (2.5-4.9); POTASSIUM 3.4 mmol/L (3.5-5.1); SODIUM SERUM 138 mmol/L (136-145); TOTAL PROTEIN, SERUM 5.2 g/dL (6.4-8.2); UREA NITROGEN, BLOOD 48 mg/dL (7-18)
[2019-03-18 07:47] LABS: ALBUMIN 1.4 g/dL (3.4-5.0)
[2019-03-18 08:00] VITALS: BP 146/54
[2019-03-18] MEDS: LACTOBACILLUS RHAMNOSUS GG 1 EACH CAP.SPRINK PO SCH ×2 (09:03→16:14)
[2019-03-18] MEDS: CLOTRIMAZOLE 1% 15 GM TUBE TP SCH ×2 (09:03→17:42)
--- NOTE | 2019-03-18 10:00 | NUR ---
MS RN NOTES DONE THE WOUND DRESSING ON LEFT LOWER EXTREMITY.PT TOLERATED WELL.
[2019-03-18 10:02] LABS: BAND % (MANUAL) 2 % (0.0-5.0); LYMPHOCYTES % (MANUAL) 7 % (16-48); MONOCYTES % (MANUAL) 2 % (0-11.0); NEUTROPHILS % (MANUAL) 89 (42-76)
[2019-03-18 10:20] LABS: D-DIMER 2.63 mg/L(FEU (0.17-0.50)
[2019-03-18] MEDS ORDERED: POTASSIUM CHLORIDE 10 MEQ TABLET.SA PO ONE (11:00)
[2019-03-18] MEDS: ONDANSETRON HCL/PF 4 MG/2 ML VIAL IVP PRN (11:39)
[2019-03-18] MEDS: SOD FERRIC GLUC 125 MG in IV NS 0.9% 100 ML IV SCH (15:58)
[2019-03-18 16:00] VITALS: BP 154/63
[2019-03-18] MEDS: CEFAZOLIN 1 GM in IV NS 0.9% 50 ML IV SCH (17:36)
--- NOTE | 2019-03-18 18:35 | NUR ---
MS RN CLOSING NOTES PT IS LYING ON BED SLEEPING.ALERT/ORIENTED X4 WITH PALESTINIAN SPEAKING.ON 2LPM O2 CONTINUOUSLY,NO SOB AND ACUTE DISTRESS NOTED.IV LINE IS IN PLACE WITH IV ANTIBIOTICS IS RUNNING.SITE IS CLEAN,DRY AND INTACT.RESPIRATION IS EVEN AND DRY.NO COMPLICATIONS NOTED.WILL ENDORSE TO ELECTRIC MOTOR WINDERS ASSEMBLER RN FOR JOHNNY AND TO COLLECT STOOL FOR OCCULT BLOOD.
--- NOTE | 2019-03-18 19:20 | NUR ---
MS RN NOTES PT COMPLAINTS OF MOUTH SORE,CHECKED AND ITS NOTED WITH MOUTH DRYNESS AND SKIN PEELING.ELECTRONIC TEST TECHNICIAN DIAMOND SELECTOR MILLIE ELIZABETH ORDERED PRN PERIDEX MOUTH WASH AND GOOD ORAL CARE.PT AND ELECTRICAL LOGGING OPERATOR RN MADE AWARE.NEW ORDERS NOTED AND CARRIED OUT.
[2019-03-18] MEDS ORDERED: CHLORHEXIDINE GLUCONATE 15 ML UDC MM PRN (19:30)
[2019-03-18 21:00] VITALS: BP 140/65
[2019-03-18] MEDS: IV NS 0.9% 1,000 ML IV PRN (21:14)
[2019-03-19 04:00] VITALS: BP_SYST 140; BP_SYST 158; BP_DIAS 65; BP_DIAS 71
--- NOTE | 2019-03-19 06:07 | NUR ---
RN NOTES PATIENT IN BED, LYING COMFORTABLY WITH NO APPARENT DISTRESS. BREATHING EVEN AND UNLABORED. ON 2LPM O2 VIA NASAL CANNULA TOLERATING WELL. NO COMPLAINT OF PAIN OR DISCOMFORT. ALERT AND ORIENTED X4 GIBRALTARIAN SPEAKING. WOUND RESPONDING FAIRLY TO TREATMENT. NO SIGNIFICANT CHANGE OF CONDITION. KEPT CLEAN AND DRY. WILL ENDORSE TO NEXT SHIFT FOR CONTINUITY OF CARE.
[2019-03-19] MEDS: INSULIN REGULAR, HUMAN 100 UNIT/ML 3 ML VIAL SQ PRN ×2 (06:10→21:42)
[2019-03-19] MEDS: BLOOD SUGAR DIAGNOSTIC 1 EACH STRIP IN SCH ×4 (06:11→21:42)
[2019-03-19] MEDS ORDERED: IV NS 0.9% 1,000 ML IV PRN (07:44)
[2019-03-19 08:00] VITALS: BP 164/65
--- NOTE | 2019-03-19 08:00 | NUR ---
MS RN AM NOTES PATIENT SITTING IN BED COMFORTABLY WITH NO APPARENT DISTRESS. BREATHING EVEN AND UNLABORED. ON 2LPM O2 VIA NASAL CANNULA TOLERATING WELL. NO COMPLAINT OF PAIN OR DISCOMFORT. ALERT AND ORIENTED X4 HEBREW SPEAKING. WOUND RESPONDING FAIRLY TO TREATMENT. KEPT CLEAN AND DRY. CALL LIGHT PLACED WITHIN REACH.
[2019-03-19] MEDS: LACTOBACILLUS RHAMNOSUS GG 1 EACH CAP.SPRINK PO SCH ×2 (08:41→16:36)
[2019-03-19] MEDS: CLOTRIMAZOLE 1% 15 GM TUBE TP SCH ×2 (08:45→16:38)
[2019-03-19 09:54] LABS: CALCIUM, SERUM 8.2 mg/dL (8.5-10.1); CARBON DIOXIDE 20 mmol/L (21-32); CHLORIDE 104 mmol/L (98-107); CREATININE 1.7 mg/dL (0.6-1.3); GLUCOSE 114 mg/dL (74-106); POTASSIUM 3.2 mmol/L (3.5-5.1); SODIUM SERUM 138 mmol/L (136-145); UREA NITROGEN, BLOOD 34 mg/dL (7-18)
[2019-03-19 13:45] LABS: BASOPHILS % (AUTO) 0.3 % (0.0-2.0); EOSINOPHILS % (AUTO) 1.1 % (0.0-6.0); HEMATOCRIT 28 % (33-45); HEMOGLOBIN 9.1 g/dL (11.5-14.8); LYMPHOCYTES # (AUTO) 0.7 /CMM (0.8-4.8); LYMPHOCYTES % (AUTO) 9.3 % (20.0-44.0); MEAN CORPUSCULAR HGB CONC 33 g/dl (31.0-36.0); MEAN CORPUSCULAR VOLUME 76 fL (82-100); MONOCYTES # (AUTO) 0.4 /CMM (0.1-1.30); MONOCYTES % (AUTO) 4.8 % (2.0-12.0); NEUTROPHILS # (AUTO) 6.3 /CMM (1.8-8.9); NEUTROPHILS % (AUTO) 84.5 % (43.0-81.0); PLATELET COUNT (AUTO) 131 /CMM (150-450); RED BLOOD CELL COUNT(AUTO) 3.63 MIL/uL (4.0-5.2); WHITE BLOOD COUNT (AUTO) 7.5 K/uL (4.3-11.0)
[2019-03-19] MEDS ORDERED: POTASSIUM CHLORIDE 20 MEQ TAB.PRT.SR PO ONE (14:00)
[2019-03-19] MEDS: NYSTATIN (PYXIS) 500,000 UNIT/5 ML ORAL.SUSP PO SCH ×2 (14:06→16:36)
[2019-03-19] MEDS: SOD FERRIC GLUC 125 MG in IV NS 0.9% 100 ML IV SCH (14:17)
[2019-03-19 15:03] LABS: BAND % (MANUAL) 2 % (0.0-5.0); EOSINOPHILS % (MANUAL) 2 % (0-4); LYMPHOCYTES % (MANUAL) 9 % (16-48); MONOCYTES % (MANUAL) 4 % (0-11.0); NEUTROPHILS % (MANUAL) 83 (42-76)
[2019-03-19] MEDS: CEFAZOLIN 1 GM in IV NS 0.9% 50 ML IV SCH (16:51)
--- NOTE | 2019-03-19 17:00 | NUR ---
INFORMED KEESHA MABRY OF PT'S SBP IN 160'S.LATEST BP IS 164/75 HR 89 PT DENYING PAIN.
--- NOTE | 2019-03-19 18:23 | NUR ---
Awaiting for Dr Hunter to see pt for pain mgt.
[2019-03-19] MEDS: METOPROLOL TARTRATE 25 MG TABLET PO SCH (18:41)
[2019-03-19 18:42] VITALS: BP 159/68
--- NOTE | 2019-03-19 19:31 | NUR ---
MS RN RECEIVE PT IN BED A/O X 4 STABLE, RESPIRATIONS EVEN AND UNLABORED, SAFETY MEASURES IN PLACE. WILL CONTINUE TO MONITOR
[2019-03-19 20:00] VITALS: BP 148/75
[2019-03-20 04:00] VITALS: BP 133/48
--- NOTE | 2019-03-20 06:18 | NUR ---
MS RN PT SLEPT WELL THROUGHOUT THE NIGHT. NOT IN RESPIRATORY DISTRESS. NO SIGNIFICANT CHANGES, KEPT CLEAN AND DRY AND COMFORTABLE. NEEDS ATTENDED AND ANTICIPATED. NURSING CARE RENDERED, REPOSITION EVERY 2 HOURS, OFFLOAD HEELS AND ELBOWS AT ALL TIMES. SAFETY MEASURES AT ALL TIMES. ENDORSE TO THE NEXT SHIFT.
[2019-03-20 06:41] LABS: CARBON DIOXIDE 20 mmol/L (21-32); CHLORIDE 109 mmol/L (98-107); CREATININE 1.4 mg/dL (0.6-1.3); GLUCOSE 99 mg/dL (74-106); MAGNESIUM 1.6 mg/dL (1.8-2.4); PHOSPHORUS 2.7 mg/dL (2.5-4.9); POTASSIUM 3.9 mmol/L (3.5-5.1); SODIUM SERUM 138 mmol/L (136-145); UREA NITROGEN, BLOOD 26 mg/dL (7-18)
[2019-03-20 06:48] LABS: BASOPHILS % (AUTO) 0.3 % (0.0-2.0); EOSINOPHILS % (AUTO) 1.5 % (0.0-6.0); HEMATOCRIT 25 % (33-45); HEMOGLOBIN 8.4 g/dL (11.5-14.8); LYMPHOCYTES # (AUTO) 1.1 /CMM (0.8-4.8); LYMPHOCYTES % (AUTO) 11.5 % (20.0-44.0); MEAN CORPUSCULAR HGB CONC 33 g/dl (31.0-36.0); MEAN CORPUSCULAR VOLUME 77 fL (82-100); MONOCYTES # (AUTO) 0.6 /CMM (0.1-1.30); MONOCYTES % (AUTO) 6.2 % (2.0-12.0); NEUTROPHILS # (AUTO) 7.8 /CMM (1.8-8.9); NEUTROPHILS % (AUTO) 80.5 % (43.0-81.0); PLATELET COUNT (AUTO) 154 /CMM (150-450); WHITE BLOOD COUNT (AUTO) 9.7 K/uL (4.3-11.0)
[2019-03-20 08:00] VITALS: BP 172/73
[2019-03-20] MEDS: BLOOD SUGAR DIAGNOSTIC 1 EACH STRIP IN SCH ×3 (08:00→17:14)
[2019-03-20 09:41] LABS: BAND % (MANUAL) 2 % (0.0-5.0); LYMPHOCYTES % (MANUAL) 15 % (16-48); MONOCYTES % (MANUAL) 3 % (0-11.0); NEUTROPHILS % (MANUAL) 78 (42-76)
[2019-03-20 09:42] LABS: METAMYELOCYTES % 1 % (0-0); MYELOCYTES % 1 % (0-0)
[2019-03-20] MEDS: LACTOBACILLUS RHAMNOSUS GG 1 EACH CAP.SPRINK PO SCH ×2 (10:06→17:04)
[2019-03-20] MEDS: NYSTATIN (PYXIS) 500,000 UNIT/5 ML ORAL.SUSP PO SCH ×3 (10:06→17:04)
[2019-03-20] MEDS: METOPROLOL TARTRATE 25 MG TABLET PO SCH (10:06)
[2019-03-20] MEDS: Magnesium 1GM/D5W 100ML PREMIX 100 ML IV SCH ×2 (10:07→13:01)
[2019-03-20] MEDS: CLOTRIMAZOLE 1% 15 GM TUBE TP SCH ×2 (10:27→17:14)
[2019-03-20] MEDS ORDERED: MAGNESIUM OXIDE 400 MG TABLET PO ONE (14:30)
[2019-03-20 16:00] VITALS: BP 147/63
[2019-03-20] MEDS: SOD FERRIC GLUC 125 MG in IV NS 0.9% 100 ML IV SCH (16:19)
[2019-03-20] MEDS: CEFAZOLIN 1 GM in IV NS 0.9% 50 ML IV SCH (17:04)
[2019-03-20] MEDS: INSULIN REGULAR, HUMAN 100 UNIT/ML 3 ML VIAL SQ PRN (17:17)
[2019-03-20] MEDS ORDERED: CEFA1VIA19 IJ (17:24)
== END 2019-03-20 18:50 | disposition home health service (06) | DRG 720 ==
LOC: ER 13:22 → TELE 16:39 → ICU 19:44 → TELE-TD 03-16 08:52 → TELE1 03-16 09:12 → MEDSG1 03-17 11:15
PROVIDERS: ADMIT Nurse Practitioner Acute Care; ATTEND Nurse Practitioner Acute Care
DX: A40.8 Other streptococcal sepsis (principal); N17.0 Acute kidney failure with tubular necrosis; E44.0 Moderate protein-calorie malnutrition; D68.59 Other primary thrombophilia; D69.6 Thrombocytopenia, unspecified; I95.9 Hypotension, unspecified; E87.2 Acidosis; B37.0 Candidal stomatitis; E11.22 Type 2 diabetes mellitus with diabetic chronic kidney disease; E11.42 Type 2 diabetes mellitus with diabetic polyneuropathy; E83.42 Hypomagnesemia; I48.91 Unspecified atrial fibrillation; E87.1 Hypo-osmolality and hyponatremia; E86.1 Hypovolemia; N39.0 Urinary tract infection, site not specified; D72.829 Elevated white blood cell count, unspecified; D50.9 Iron deficiency anemia, unspecified; K21.9 Gastro-esophageal reflux disease without esophagitis; Z68.37 Body mass index [BMI] 37.0-37.9, adult; E66.9 Obesity, unspecified; E11.621 Type 2 diabetes mellitus with foot ulcer; L97.529 Non-pressure chronic ulcer of other part of left foot with unspecified severity; L03.116 Cellulitis of left lower limb; M19.90 Unspecified osteoarthritis, unspecified site; L97.519 Non-pressure chronic ulcer of other part of right foot with unspecified severity; E78.5 Hyperlipidemia, unspecified; E11.610 Type 2 diabetes mellitus with diabetic neuropathic arthropathy; R58 Hemorrhage, not elsewhere classified; L30.4 Erythema intertrigo; S60.413A Abrasion of left middle finger, initial encounter; X58.XXXA Exposure to other specified factors, initial encounter; Y92.89 Other specified places as the place of occurrence of the external cause; I12.9 Hypertensive chronic kidney disease with stage 1 through stage 4 chronic kidney disease, or unspecified chronic kidney disease; N18.9 Chronic kidney disease, unspecified; B35.1 Tinea unguium; G47.33 Obstructive sleep apnea (adult) (pediatric)
CPT/HCPCS: 36415; 71045-TC; 73564-TC; 73610-TC; 80048-TC; 80053-TC; 80061-TC; 80074; 80076-TC; 80202-TC; 81000-TC; 82550-TC; 82570-TC; 82728-TC; 82962-TC; 83540-TC; 83605-TC; 83735-TC; 83970; 84100-TC; 84155; 84155-TC; 84165; 84300-TC; 84443-TC; 84484-TC; 85025-TC; 85396; 85730-TC; 87040-TC; 87081-TC; 87086-TC; 87186-TC; 93307-TC; 93971-TC; A4216; G0378; J0690; J1815; J2405; J2543; J2916; J3370; J3475; J3490; J7030; J7040; J7060

== ENCOUNTER → 2019-03-14 | Outpatient (CLI) | payer MEDICARE, MEDICAID ==
[~2019-03-14] MED LIST changes: +CEFA1VIA19 IJ; +DICL100G16 TP
== END | disposition home or self-care (01) ==
LOC: WOU 13:00
PROVIDERS: ATTEND Surgery
DX: I95.9 Hypotension, unspecified (principal); R06.82 Tachypnea, not elsewhere classified
CPT/HCPCS: G0463

== ENCOUNTER 2019-03-31 09:32 | Outpatient (CLI) | payer MEDICAID, MEDICARE ==
[~2019-03-31 09:32] MED LIST changes: -AMOX1TAB16 PO; -ASPI81TA44 PO; -ATOR20TA PO; +CEFA1VIA19 IJ; +DICL100G16 TP; -ESOM40CA PO; -NEBI5TAB8 PO; -SENN8.6T22 PO
== END 2019-03-31 23:59 | disposition home or self-care (01) ==
DX: E11.621 Type 2 diabetes mellitus with foot ulcer (principal); L97.518 Non-pressure chronic ulcer of other part of right foot with other specified severity; E11.610 Type 2 diabetes mellitus with diabetic neuropathic arthropathy; L60.3 Nail dystrophy; Z83.3 Family history of diabetes mellitus; Z79.84 Long term (current) use of oral hypoglycemic drugs; Z79.899 Other long term (current) drug therapy

== ENCOUNTER 2021-06-07 23:17 | Inpatient (IN) | payer MEDICARE, OTHER ==
[~2021-06-07] VITALS: Ht 167.6 cm; Wt 76.2 kg
[~2021-06-07 23:17] MED LIST changes: -HYDR-3024 PO; +HYDR-3642 PO
--- NOTE | 2021-06-07 23:25 | NUR ---
BIB C/O R HIP AND BACK PAIN STATUS POST MECHANICAL FALL. -BLOOD THINNER -KO -HEAD TRAUMA NO NEURO DEFICITS NOTED. PT PLACED INTO A GOWN AND MONITOR ALL VSS. MD WAS AT BEDSIDE FOR EVAL.
--- NOTE | 2021-06-08 00:02 | NUR ---
EMMANUEL (DAUGHTER) ROSAS (GRANDSON)
[2021-06-08 00:20] LABS: BASOPHILS # (AUTO) 0.1 K/uL (0.0-0.2); BASOPHILS % (AUTO) 0.7 % (0.0-2.0); EOSINOPHILS % (AUTO) 0.8 % (0.0-6.0); HEMATOCRIT 30 % (33-45); HEMOGLOBIN 9.6 g/dL (11.5-14.8); LYMPHOCYTES # (AUTO) 0.9 K/uL (0.8-4.8); LYMPHOCYTES % (AUTO) 6.3 % (20.0-44.0); MEAN CORPUSCULAR HGB CONC 32 g/dl (31.0-36.0); MEAN CORPUSCULAR VOLUME 86 fL (82-100); MONOCYTES # (AUTO) 0.6 K/uL (0.1-1.30); MONOCYTES % (AUTO) 4.3 % (2.0-12.0); NEUTROPHILS # (AUTO) 11.9 K/uL (1.8-8.9); NEUTROPHILS % (AUTO) 87.9 % (43.0-81.0); PLATELET COUNT (AUTO) 250 K/uL (150-450); RED BLOOD CELL COUNT(AUTO) 3.49 MIL/uL (4.0-5.2); WHITE BLOOD COUNT (AUTO) 13.5 K/uL (4.3-11.0)
[2021-06-08 00:28] LABS: CALCIUM, SERUM 8.6 mg/dL (8.5-10.1); CARBON DIOXIDE 21 mmol/L (21-32); CHLORIDE 109 mmol/L (98-107); CREATININE 1.3 mg/dL (0.6-1.3); GLUCOSE 133 mg/dL (74-106); POTASSIUM 4.4 mmol/L (3.5-5.1); SODIUM SERUM 140 mmol/L (136-145); UREA NITROGEN, BLOOD 31 mg/dL (7-18)
[2021-06-08] MEDS ORDERED: IV NS 0.9% 500 ML BAG IV ONE (01:30)
[2021-06-08] MEDS ORDERED: ONDANSETRON HCL/PF - ER 4 MG/2 ML VIAL IV ONE (01:30)
[2021-06-08] MEDS ORDERED: MORPHINE SULFATE INJ 2 MG/ML DISP.SYRIN IV ONE (01:30)
[2021-06-08] MEDS ORDERED: ONDANSETRON HCL/PF 4 MG/2 ML VIAL ONE (02:01)
--- NOTE | 2021-06-08 02:49 | NUR ---
[facility] PAGED
--- NOTE | 2021-06-08 02:56 | NUR ---
FOLLOWED UP WITH RAUL REGARDING IMAGING RESULT
[2021-06-08 03:02] LABS: BILIRUBIN,URINE NEGATIVE (NEGATIVE); COLOR,URINE YELLOW (YELLOW); LEUKOCYTE ESTERASE ,URINE NEGATIVE (NEGATIVE); NITRITE, URINE NEGATIVE (NEGATIVE); PH,URINE 5.5 (5.0-8.0); PROTEIN,URINE TRACE mg/dl (NEGATIVE); UGLUCOSE NEGATIVE (NEGATIVE); UROBILINOGEN,URINE 0.2 EU/dL (0.2)
--- NOTE | 2021-06-08 05:09 | NUR ---
RECIEVED BED 309-1
--- NOTE | 2021-06-08 06:11 | NUR ---
REPORT GIVEN TO JOSE
[2021-06-08 06:40] VITALS: BP 189/103
--- NOTE | 2021-06-08 06:40 | NUR ---
PT TRANSPORTED TO UNIT ON [facility] WITH EMT AND RN AT BEDSIDE. PT IS IN STABLE CONDITION FOR TRANSPORT.
--- NOTE | 2021-06-08 07:50 | NUR ---
MS/RN OPENING NOTES RECEIVED PATIENT AWAKE ALERT AND ORIENTED X4. PATIENT IS ON ROOM AIR. PATIENT IN NO APPARENT RESPIRATORY DISTRESS NOTED. COMPLAINED OF PAIN RATED 10/10. BP 196/108 PULSE 69 DORY ANJELICA WAS AWARE NO NEW ORDER AT THIS TIME. INITIAL ASSESSMENT WAS DONE AND RECORDED. WILL CONTINUE TO MONITOR.
[2021-06-08 08:00] VITALS: BP 196/108
[2021-06-08] MEDS ORDERED: hydrALAZINE HCL IV 20 MG VIAL IV PRN (09:00)
[2021-06-08] MEDS ORDERED: MORPHINE SULFATE INJ 4 MG/ML DISP.SYRIN IV ONE (09:00)
--- NOTE | 2021-06-08 09:02 | NUR ---
RN NOTES DORY DEJESUS DNP ORDER MORPHINE 4MG IVP X1 NOW AND HYDRALAZINE 10MG IVP EVERY 4 HOURS PRN SBP > 165. NOTED AND CARRIED OUT.
[2021-06-08] MEDS ORDERED: IV NS 0.9% 1,000 ML IV PRN (09:30)
--- NOTE | 2021-06-08 10:07 | NUR ---
RN NOTES DR. MCCOLLUM ORDER TO OBTAIN CONSENT FOR INTRAMEDULLARY NAILING AT RIGHT HIP FRACTURE. NOTED AND CARRIED OUT.
--- NOTE | 2021-06-08 11:51 | NUR ---
MS/RN NOTES VTE SCORE 5 DORY DEJESUS DNP WAS AWARE NO NEW ORDER AT THIS TIME.
[2021-06-08] MEDS ORDERED: ONDANSETRON HCL/PF 4 MG/2 ML VIAL IVP PRN (12:00)
[2021-06-08] MEDS ORDERED: ACETAMINOPHEN 325 MG TABLET PO PRN (12:00)
[2021-06-08] MEDS ORDERED: Z GUARD REMEDY 2 OZ OINT TP PRN (12:00)
[2021-06-08] MEDS ORDERED: IV LR 1000 ML 1,000 ML IV PRN (12:00)
[2021-06-08 12:37] LABS: IRON, SERUM 88 ug/dl (50-175); TOTAL IRON BINDING CAPACITY 251 ug/dl (250-450)
[2021-06-08 12:39] LABS: ALANINE AMINOTRANSFERASE 20 U/L (12-78); ALBUMIN 3.1 g/dL (3.4-5.0); ALKALINE PHOSPHATASE 87 U/L (46-116); ASPARTATE AMINOTRANSFERASE 19 U/L (15-37); BILIRUBIN,TOTAL 0.6 mg/dL (0.2-1.0); CALCIUM, SERUM 8.6 mg/dL (8.5-10.1); CARBON DIOXIDE 20 mmol/L (21-32); CHLORIDE 112 mmol/L (98-107); CREATININE 1.2 mg/dL (0.6-1.3); GLUCOSE 118 mg/dL (74-106); PHOSPHORUS 3.4 mg/dL (2.5-4.9); POTASSIUM 4.5 mmol/L (3.5-5.1); SODIUM SERUM 142 mmol/L (136-145); TOTAL PROTEIN, SERUM 6.5 g/dL (6.4-8.2); UREA NITROGEN, BLOOD 28 mg/dL (7-18)
[2021-06-08] MEDS ORDERED: POLYMYXIN B SULFATE 0 UNITS ONE (12:47)
[2021-06-08] MEDS ORDERED: VANCOMYCIN 1 GM VIAL ONE (12:47)
[2021-06-08] MEDS ORDERED: BUPIVACAINE 0.25% 75 MG/30 ML VIAL ONE (12:47)
[2021-06-08] MEDS ORDERED: BUPIVACAINE 0.5 % PF 150 MG/30 ML VIAL ONE (12:47)
[2021-06-08] MEDS ORDERED: ANESTHESIA TRAY IN PYXIS 1 EA TRAY MC ONE (12:48)
[2021-06-08 12:51] LABS: CHOLESTEROL 131 mg/dL (<200); FERRITIN 28 ng/mL (8-388); HDL CHOLESTEROL 52 mg/dL (40-60); LDL 61 mg/dL (0-99); TRIGLYCERIDES 107 mg/dL (30-150)
[2021-06-08] MEDS ORDERED: predniSONE 50 MG TABLET PO SCH (13:00)
[2021-06-08] MEDS ORDERED: FAMOTIDINE/PF INJ 20 MG/2 ML VIAL IV ONE (13:18)
[2021-06-08] MEDS ORDERED: MIDAZOLAM HCL 2 MG/2ML VIAL ONE (13:18)
[2021-06-08] MEDS ORDERED: FENTANYL PF 250MCG/5ML AMPUL ONE (13:18)
--- NOTE | 2021-06-08 13:32 | NUR ---
MS/RN NOTES RN NOTES PATIENT IS OUT IN THE UNIT BELT LACER BY OR NURSE.
[2021-06-08] MEDS ORDERED: FENTANYL PF 100MCG/2ML AMPUL ONE (15:54)
[2021-06-08] MEDS ORDERED: HYDROCODONE/APAP 10/325MG TABLET PO PRN (16:30)
--- NOTE | 2021-06-08 16:53 | NUR ---
MS/RN NOTES PATIENT CAME BACK IN THE UNIT. PATIENT IS AWAKE ALERT AND ORIENTED X4. PATIENT IS ON 2L OXYGEN SATURATING WELL. PATIENT IN NO APPARENT RESPIRATORY DISTRESS NOTED. NO COMPLAINED OF PAIN AT THIS TIME. VITAL SIGN BP 128/56 P 98 TEMP 97.8 RR 17. WILL CONTINUE TO MONITOR.
--- NOTE | 2021-06-08 17:00 | NUR ---
MS/RN NOTES DR. ROMERO OUT OF BED WITH PT IN AM FULL WEIGHT BEARING RIGHT LEG, HEMOGLOBIN AND HEMATOCRIT IN AMD. NOTED AND CARRIED OUT.
--- NOTE | 2021-06-08 17:23 | NUR ---
MS/RN NOTES DORY DEJESUS DNP ORDER CARDIAC/CCHO PUREE DIET. NOTED AND CARRIED OUT.
[2021-06-08] MEDS: IV D5/0.45 NACL W/20 MEQ KCL 1L IV PRN (17:51)
--- NOTE | 2021-06-08 19:09 | NUR ---
MS/RN CLOSING NOTES PATIENT IS AWAKE ALERT AND ORIENTED X4. PATIENT IN NO APPARENT RESPIRATORY DISTRESS NOTED. NO COMPLAINED OF PAIN NOTED AT THIS TIME. IV ACCESS AT RIGHT AC #2OG WITH IV FLUID OF KCL 20 MEQ IV D5 1/2 NS 1L AT 75ML/HOUR ON AND INFUSING WELL. SEEN AND EXAMINED BY MD WITH ORDERS MADE AND CARRIED OUT. ALL DUE MEDICATIONS WAS GIVEN. SAFETY PRECAUTIONS WAS IN PLACED. BED IN LOWEST POSITION AND LOCKED. SIDERAILS UP X2. CALL LIGHT WITHIN REACH. WILL ENDORSED TO BODY SHOP SUPERVISOR FOR JOHNNY.
--- NOTE | 2021-06-08 19:20 | NUR ---
MS/RN OPENING NOTE RECEIVED PATIENT SLEEPING IN BED. ALERT AND ORIENTED X 4. PRIMARILY KAZAKH SPEAKING. FAMILY CURRENTLY AT BEDSIDE. PATIENT DENIES PAIN AT THIS TIME. CONTINUES ON ROOM AIR WITH NO S/SX OF RESPIRATORY DISTRESS NOTED. IV ACCESS TO RIGHT AC #20G INTACT AND PATENT. CONTINUES ON IV KCL 20MEQ IN D5 1/2 NS @ 75ML/HR. SURGICAL INCISION DRESSING TO RLE CLEAN, DRY AND INTACT. CALL LIGHT WITHIN REACH. ASPIRATION, FALL AND SAFETY PRECAUTIONS MAINTAINED. WILL CONTINUE TO MONITOR.
[2021-06-08 20:00] VITALS: BP 97/53
[2021-06-08] MEDS: ANCEF 1 GM/50 ML D5W IV SCH (22:48)
[2021-06-09] MEDS: IV D5/0.45 NACL W/20 MEQ KCL 1L IV PRN (05:58)
[2021-06-09] MEDS: ANCEF 1 GM/50 ML D5W IV SCH ×2 (06:00→15:18)
--- NOTE | 2021-06-09 06:20 | NUR ---
MS/RN CLOSING NOTE PATIENT CURRENTLY SLEEPING IN BED. ALERT AND ORIENTED X 4. PRIMARILY BRUNEIAN SPEAKING. PATIENT DENIES PAIN AT THIS TIME. CONTINUES ON ROOM AIR WITH NO S/SX OF RESPIRATORY DISTRESS NOTED. IV ACCESS TO RIGHT AC #20G INTACT AND PATENT. CONTINUES ON IV KCL 20MEQ IN D5 1/2 NS @ 75ML/HR. CONTINUES ON IV ABX. SURGICAL INCISION DRESSING TO RLE CLEAN, DRY AND INTACT. CALL LIGHT WITHIN REACH. ASPIRATION, FALL AND SAFETY PRECAUTIONS MAINTAINED. WILL ENDORSE PLAN OF CARE TO ONCOMING SHIFT.
[2021-06-09 06:34] LABS: ALANINE AMINOTRANSFERASE 14 U/L (12-78); ALBUMIN 2.3 g/dL (3.4-5.0); ALKALINE PHOSPHATASE 65 U/L (46-116); ASPARTATE AMINOTRANSFERASE 23 U/L (15-37); BILIRUBIN,TOTAL 0.2 mg/dL (0.2-1.0); CALCIUM, SERUM 7.2 mg/dL (8.5-10.1); CARBON DIOXIDE 16 mmol/L (21-32); CHLORIDE 109 mmol/L (98-107); CREATININE 2.2 mg/dL (0.6-1.3); GLUCOSE 168 mg/dL (74-106); MAGNESIUM 1.6 mg/dL (1.8-2.4); PHOSPHORUS 3.9 mg/dL (2.5-4.9); POTASSIUM 5.1 mmol/L (3.5-5.1); SODIUM SERUM 138 mmol/L (136-145); TOTAL PROTEIN, SERUM 5.4 g/dL (6.4-8.2); UREA NITROGEN, BLOOD 34 mg/dL (7-18)
[2021-06-09 06:48] LABS: BASOPHILS % (AUTO) 0.2 % (0.0-2.0); HEMATOCRIT 22 % (33-45); HEMOGLOBIN 7.1 g/dL (11.5-14.8); LYMPHOCYTES # (AUTO) 0.5 K/uL (0.8-4.8); LYMPHOCYTES % (AUTO) 2.9 % (20.0-44.0); MEAN CORPUSCULAR HGB CONC 32 g/dl (31.0-36.0); MEAN CORPUSCULAR VOLUME 86 fL (82-100); MONOCYTES # (AUTO) 0.9 K/uL (0.1-1.30); MONOCYTES % (AUTO) 4.9 % (2.0-12.0); NEUTROPHILS # (AUTO) 17.5 K/uL (1.8-8.9); PLATELET COUNT (AUTO) 157 K/uL (150-450); RED BLOOD CELL COUNT(AUTO) 2.55 MIL/uL (4.0-5.2); WHITE BLOOD COUNT (AUTO) 19.1 K/uL (4.3-11.0)
--- NOTE | 2021-06-09 07:38 | NUR ---
MS/RN OPENING NOTES RECEIVED PATIENT AWAKE ALERT AND ORIENTED X 4. PATIENT IS ON ROOM AIR. PATIENT IN NO APPARENT RESPIRATORY DISTRESS NOTED. NO COMPLAINED OF PAIN AT THIS TIME. WILL CONTINUE TO MONITOR.
[2021-06-09 08:00] VITALS: BP 91/40
--- NOTE | 2021-06-09 09:00 | NUR ---
RN NOTES B0900 BP 93/42 PULSE 119 RECHECKED AT 0915 103/49 P 95. PATIENT COMPLAINED THAT SHE WAS COLD, PROVIDED WARM BLANKET. WILL CONTINUE TO MONITOR.
[2021-06-09] MEDS: MORPHINE SULFATE INJ 2 MG/ML DISP.SYRIN IV PRN ×2 (10:51→21:36)
[2021-06-09] MEDS: IV NS 0.9% 1,000 ML IV PRN ×2 (11:23→21:44)
[2021-06-09] MEDS ORDERED: MGSO4/D5W 100 ML IV SCH (11:30)
[2021-06-09 13:30] LABS: BILIRUBIN,URINE NEGATIVE (NEGATIVE); COLOR,URINE YELLOW (YELLOW); LEUKOCYTE ESTERASE ,URINE NEGATIVE (NEGATIVE); NITRITE, URINE NEGATIVE (NEGATIVE); PH,URINE 5.5 (5.0-8.0); PROTEIN,URINE TRACE mg/dl (NEGATIVE); UGLUCOSE NEGATIVE (NEGATIVE); UROBILINOGEN,URINE 0.2 EU/dL (0.2)
[2021-06-09 13:52] LABS: CREATININE, URINE 134.1 MG/DL (30.0-125.0); URINE TOTAL PROTEIN 84.3 mg/dL (0-11.9)
[2021-06-09 14:01] LABS: RBC,URINE 0-2 /HPF (0-2); WBC,URINE 0-2 /HPF (0-3)
[2021-06-09 14:02] LABS: BACTERIA,URINE Few /HPF (None Seen); SQUAMOUS EPITHELIAL CELL,UR Rare /HPF (None Seen)
[2021-06-09 14:03] LABS: URINE AMORPHOUS URATE Few /HPF (None Seen)
[2021-06-09 15:36] LABS: EOSINOPHIL,URINE None Seen
[2021-06-09 16:00] VITALS: BP 95/46
--- NOTE | 2021-06-09 19:10 | NUR ---
MS/RN OPENING NOTE RECEIVED PATIENT RESTING IN BED. AWAKE, ALERT AND ORIENTED X 4. FAMILY AT BEDSIDE. PATIENT ABLE TO MAKE NEEDS KNOWN. DENIES PAIN AT THIS TIME. CONTINUES ON ROOM AIR WITH NO S/SX OF RESPIRATORY DISTRESS NOTED. IV ACCESS TO LEFT FOREARM #20G INTACT AND PATENT. CONTINUES ON IVF NS 0.9% @ 125ML/HR. SURGICAL DRESSINGS TO RIGHT LOWER EXTREMITY CLEAN, DRY AND INTACT. CALL LIGHT WITHIN REACH. ASPIRATION, FALL AND SAFETY PRECAUTIONS MAINTAINED. WILL CONTINUE TO MONITOR.
--- NOTE | 2021-06-09 19:14 | NUR ---
MS/RN CLOSING NOTES PATIENT IS AWAKE ALERT AND ORIENTED X4. PATIENT IN NO APPARENT RESPIRATORY DISTRESS NOTED. NO COMPLAINED OF PAIN NOTED AT THIS TIME. IV ACCESS AT LEFT FOREARM #22G WITH IV FLUID OF NS 1L AT 125ML/HOUR ON AND INFUSING WELL. SEEN AND EXAMINED BY MD WITH ORDERS MADE AND CARRIED OUT. ALL DUE MEDICATIONS WAS GIVEN. SAFETY PRECAUTIONS WAS IN PLACED. BED IN LOWEST POSITION AND LOCKED. SIDERAILS UP X2. CALL LIGHT WITHIN REACH. WILL ENDORSED TO CIVIL ENGINEERING TECHNICIAN FOR JOHNNY.
[2021-06-09 20:00] VITALS: BP 105/43
[2021-06-09 22:51] LABS: BASOPHILS % (AUTO) 0.3 % (0.0-2.0); EOSINOPHILS % (AUTO) 0.7 % (0.0-6.0); HEMATOCRIT 21 % (33-45); LYMPHOCYTES # (AUTO) 1.1 K/uL (0.8-4.8); LYMPHOCYTES % (AUTO) 7.2 % (20.0-44.0); MEAN CORPUSCULAR HGB CONC 32 g/dl (31.0-36.0); MEAN CORPUSCULAR VOLUME 85 fL (82-100); MONOCYTES # (AUTO) 0.8 K/uL (0.1-1.30); MONOCYTES % (AUTO) 5.3 % (2.0-12.0); NEUTROPHILS # (AUTO) 13.8 K/uL (1.8-8.9); NEUTROPHILS % (AUTO) 86.5 % (43.0-81.0); PLATELET COUNT (AUTO) 152 K/uL (150-450); RED BLOOD CELL COUNT(AUTO) 2.44 MIL/uL (4.0-5.2)
[2021-06-09 23:27] LABS: HEMOGLOBIN 6.7 g/dL (11.5-14.8)
--- NOTE | 2021-06-09 23:30 | NUR ---
MS/RN NOTE RECEIVED CALL FROM LAB WITH CRITICAL LAB VALUE OF HGB 6.7 AND HCT 21. NO ACTIVE S/SX OF BLEEDING NOTED. DRESSINGS TO RLE CLEAN, DRY AND INTACT. FRONT DESK CLERK EKESHA LIU MADE AWARE WITH NEW ORDERS TO TRANSFUSED 2 UNITS PRBC. ORDERS INPUTTED AND CARRIED OUT.
--- NOTE | 2021-06-09 23:57 | NUR ---
MS/RN NOTE CONSENT FOR BLOOD IN CHART. DAUGHTER, EMMANUEL HUGO MADE AWARE AND IN AGREEMENT WITH BLOOD TRANSFUSION. PATIENT CURRENTLY RESTING IN BED. WILL CONTINUE TO MONITOR.
[2021-06-10] VITALS (11 sets, daily range): BP systolic 99–133; BP diastolic 47–63
[2021-06-10 03:12] LABS: EOSINOPHILS % (MANUAL) 2 % (0-4); LYMPHOCYTES % (MANUAL) 4 % (16-48); MONOCYTES % (MANUAL) 3 % (0-11.0); NEUTROPHILS % (MANUAL) 91 (42-76)
--- NOTE | 2021-06-10 04:00 | NUR ---
MS/RN NOTE BLOOD TRANSFUSION STARTED AT 0400. CONSENT IN CHART. PATIENT AND FAMILY IN AGREEMENT WITH TX. VERIFIED BLOOD PRODUCT WITH ANDRADE ESPARZA. PATIENT CURRENTLY SLEEPING IN BED. WILL CONTINUE TO MONITOR.
--- NOTE | 2021-06-10 04:43 | NUR ---
MS/RN NOTE PATIENT REFUSED TO HAVE WOUND PICTURE TAKEN OF RIGHT GROIN AREA. RIGHT GROIN IS RED AND TENDER TO TOUCH. AREA CLEANED AND LEFT OPEN TO AIR. WOUND CONSULT IN AM. WILL CONTINUE TO MONITOR.
--- NOTE | 2021-06-10 06:10 | NUR ---
MS/RN CLOSING NOTE PATIENT CURRENTLY SLEEPING IN BED. ALERT AND ORIENTED X 4. ABLE TO MAKE NEEDS KNOWN. DENIES PAIN AT THIS TIME. CONTINUES ON ROOM AIR WITH NO S/SX OF RESPIRATORY DISTRESS NOTED. IV ACCESS TO RIGHT HAND #22G INTACT AND PATENT. CONTINUES ON IVF NS 0.9% @ 125ML/HR. SURGICAL DRESSINGS TO RIGHT LOWER EXTREMITY CLEAN, DRY AND INTACT. CALL LIGHT WITHIN REACH. ASPIRATION, FALL AND SAFETY PRECAUTIONS MAINTAINED. WILL ENDORSE PLAN OF CARE TO ONCOMING SHIFT.
[2021-06-10 06:31] LABS: BASOPHILS # (AUTO) 0.1 K/uL (0.0-0.2); BASOPHILS % (AUTO) 0.4 % (0.0-2.0); EOSINOPHILS % (AUTO) 1.7 % (0.0-6.0); HEMATOCRIT 24 % (33-45); HEMOGLOBIN 7.7 g/dL (11.5-14.8); LYMPHOCYTES # (AUTO) 1.5 K/uL (0.8-4.8); MEAN CORPUSCULAR HGB CONC 32 g/dl (31.0-36.0); MEAN CORPUSCULAR VOLUME 89 fL (82-100); MONOCYTES # (AUTO) 0.8 K/uL (0.1-1.30); MONOCYTES % (AUTO) 4.9 % (2.0-12.0); NEUTROPHILS # (AUTO) 13.6 K/uL (1.8-8.9); PLATELET COUNT (AUTO) 149 K/uL (150-450); RED BLOOD CELL COUNT(AUTO) 2.71 MIL/uL (4.0-5.2); WHITE BLOOD COUNT (AUTO) 16.2 K/uL (4.3-11.0)
--- NOTE | 2021-06-10 07:30 | NUR ---
PT RECEIVED RESTING COMFORTABLY IN BED. NO S/S OR C/O PAIN OR DISTRESS NOTED. SIDE RAILS UP X2, CALL LIGHT LEFT WITHIN REACH. WILL CONTINUE PLAN OF CARE.
[2021-06-10 07:47] LABS: CREATINE KINASE, TOTAL 1203 U/L (26-192)
[2021-06-10 07:53] LABS: ALANINE AMINOTRANSFERASE 16 U/L (12-78); ALBUMIN 2.2 g/dL (3.4-5.0); ALKALINE PHOSPHATASE 73 U/L (46-116); ASPARTATE AMINOTRANSFERASE 46 U/L (15-37); BILIRUBIN,TOTAL 0.2 mg/dL (0.2-1.0); CALCIUM, SERUM 7.4 mg/dL (8.5-10.1); CARBON DIOXIDE 16 mmol/L (21-32); CHLORIDE 112 mmol/L (98-107); GLUCOSE 113 mg/dL (74-106); MAGNESIUM 2.2 mg/dL (1.8-2.4); PHOSPHORUS 3.8 mg/dL (2.5-4.9); POTASSIUM 4.8 mmol/L (3.5-5.1); SODIUM SERUM 140 mmol/L (136-145); TOTAL PROTEIN, SERUM 5.6 g/dL (6.4-8.2); UREA NITROGEN, BLOOD 39 mg/dL (7-18)
--- NOTE | 2021-06-10 07:59 | NUR ---
WOUND CARE CONSULT: PT REFUSED TO TURN FOR FULL SKIN ASSESSMENT OF BACK/SACRUM AND BUTTOCKS. LIMITED ASSESSMENT DONE. PT NOTED TO HAVE RT FOOT WOUND, LEFT ELBOW DRY ABRASION AND RASH TO RT BREASTFOLD, ABDOMINAL AND GROIN FOLD, PRESENT ON ADMISSION. RECOMMENDATIONS MADE FOR SKIN PROTECTION. DPM CONSULT CALLED TO DR SCHWARTZ FOR RT FOOT. PT IS ON [facility] BED. IN AGREEMENT WITH PLAN OF CARE. Addendum: 06/10/21 at 0801 by SANNA MACKEY WNDNU Amended: Links added.
[2021-06-10] MEDS ORDERED: IBUP-2413 PO (11:10)
[2021-06-10] MEDS ORDERED: TRAM50TA2 PO (11:10)
[2021-06-10] MEDS ORDERED: FERR325T24 PO (11:10)
[2021-06-10] MEDS ORDERED: ASPI-1420 PO (11:10)
[2021-06-10] MEDS ORDERED: GABA-532 PO (11:10)
[2021-06-10] MEDS ORDERED: SENN-261 PO (11:10)
[2021-06-10] MEDS ORDERED: TRIA80CR12 TP (11:10)
[2021-06-10] MEDS ORDERED: ATOR10TA PO (11:10)
[2021-06-10] MEDS ORDERED: NEBI5TAB8 PO (11:10)
[2021-06-10] MEDS ORDERED: FURO40TA5 PO (11:10)
[2021-06-10] MEDS: CLOTRIMAZOLE 1% 15 GM TUBE TP SCH ×2 (13:53→17:32)
[2021-06-10] MEDS ORDERED: TRIAMCINOLONE ACETONIDE 0.1% CR 15 GM TUBE TP PRN (18:00)
[2021-06-10] MEDS ORDERED: SENNOSIDES 8.6 MG TABLET PO PRN (18:00)
--- NOTE | 2021-06-10 18:09 | NUR ---
CHANGE OF SHIFT REPORT PT RESTING COMFORTABLY IN BED. NO S/S OR C/O PAIN OR DISTRESS NOTED. SIDE RAILS UP X2, CALL LIGHT LEFT WITHIN REACH. PT KEPT CLEAN, DRY, AND COMFORTABLE. NO SIGNIFICANT CHANGE SINCE PREVIOUS SHIFT WILL GIVE REPORT TO JENNIFER ZAFAR.
--- NOTE | 2021-06-10 19:40 | NUR ---
MS RN OPENING NOTE PATIENT AWAKE IN BED, PT PRIMARILY HUNGARIAN SPEAKING, PT APPEARS COMFORTABLE AND SMILING, NO S/S OF PAIN AT THIS TIME. PT STABLE ON ROOM AIR, NO S/S OF DISTRESS OR SOB NOTED, BREATHING EVEN AND UNLABORED. RIGHT HAND #22G INTACT AND RUNNING NS @ 125 ML/HR. IBARRA CATH INTACT AND DRAINING WELL. SAFETY MEASURES IN PLACE: BED LOCKED IN LOW POSITION, SIDE RAILS UP X 3, CALL LIGHT WITHIN REACH, BED ALARM ON. WILL CONTINUE TO MONITOR PATIENT
[2021-06-10] MEDS: IV NS 0.9% 1,000 ML IV PRN (23:13)
--- NOTE | 2021-06-11 06:31 | NUR ---
MS RN CLOSING NOTE PATIENT SLEEPING IN BED, APPEARS COMFORTABLE AND NOT IN ANY DISTRESS. PT STABLE ON RA, NO S/S OF DISTRESS OR SOB NOTED, BREATHING EVEN AND UNLABORED. NO SIGNIFICANT CHANGES THROUGHOUT SHIFT. RIGHT HAND IV ACCESS RUNNING NS @ 125 ML/HR. SAFETY MEASURES IN PLACE: CALL LIGHT WITHIN REACH, SIDE RAILS UP X 2, BED LOCKED IN LOW POSITION, BED ALARM ON. WILL ENDORSE TO DAY SHIFT NURSE FOR CONTINUITY OF CARE
[2021-06-11 06:45] LABS: BASOPHILS % (AUTO) 0.3 % (0.0-2.0); EOSINOPHILS % (AUTO) 2.9 % (0.0-6.0); HEMATOCRIT 28 % (33-45); HEMOGLOBIN 9.4 g/dL (11.5-14.8); LYMPHOCYTES # (AUTO) 1.3 K/uL (0.8-4.8); LYMPHOCYTES % (AUTO) 9.8 % (20.0-44.0); MEAN CORPUSCULAR HGB CONC 34 g/dl (31.0-36.0); MEAN CORPUSCULAR VOLUME 86 fL (82-100); MONOCYTES # (AUTO) 0.6 K/uL (0.1-1.30); MONOCYTES % (AUTO) 4.6 % (2.0-12.0); NEUTROPHILS # (AUTO) 11.1 K/uL (1.8-8.9); NEUTROPHILS % (AUTO) 82.4 % (43.0-81.0); PLATELET COUNT (AUTO) 142 K/uL (150-450); RED BLOOD CELL COUNT(AUTO) 3.24 MIL/uL (4.0-5.2); WHITE BLOOD COUNT (AUTO) 13.4 K/uL (4.3-11.0)
--- NOTE | 2021-06-11 07:30 | NUR ---
received pt. in am alert and oriented x3.puerto rican speaking.call prather within reach.side rails up. no complaints.dressings dry and intact.
[2021-06-11 07:51] LABS: ALBUMIN 1.8 g/dL (3.4-5.0); BILIRUBIN,TOTAL 0.6 mg/dL (0.2-1.0); CALCIUM, SERUM 7.1 mg/dL (8.5-10.1); CREATININE 1.3 mg/dL (0.6-1.3); MAGNESIUM 2.1 mg/dL (1.8-2.4); PHOSPHORUS 2.6 mg/dL (2.5-4.9); POTASSIUM 4.6 mmol/L (3.5-5.1)
[2021-06-11 08:00] VITALS: BP 123/53
[2021-06-11] MEDS: IV NS 0.9% 1,000 ML IV PRN (08:07)
[2021-06-11] MEDS ORDERED: ATORVASTATIN 10 MG TABLET PO SCH (09:00)
[2021-06-11] MEDS ORDERED: FUROSEMIDE 40 MG TABLET PO SCH (09:00)
[2021-06-11] MEDS ORDERED: FERROUS SULFATE (325 MG) 325 MG/TAB TABLET PO SCH (09:00)
[2021-06-11] MEDS ORDERED: ASPIRIN EC 81 MG TABLET.DR PO SCH (09:00)
[2021-06-11] MEDS: GABAPENTIN 100 MG CAPSULE PO SCH ×2 (09:34→17:31)
[2021-06-11] MEDS ORDERED: ENOXAPARIN SODIUM 30 MG/0.3 ML DISP.SYRIN SQ SCH (11:00)
[2021-06-11 11:07] LABS: CREATININE KINASE (CK),MB 18.9 ng/mL (0.0-5.3)
--- NOTE | 2021-06-11 11:35 | NUR ---
WOUND CARE FOLLOW UP: PT AGREED TO BE TURNED FOR FULL SKIN ASSESSMENT OF BACK AND BUTTOCKS. PT NOTED TO HAVE PURPLE INTACT AREAS TO SACRUM AND BUTTOCKS WELL INTACT BLISTERS/VESICLES TO GLUTEAL CREASE/RT BUTTOCK AREA. NO DRAINAGE NOTED. LEFT HEEL NOTED TO HAVE INTACT PURPLE AREA. DR SCHWARTZ NOTIFIED. HEELS FLOATED. RECOMMENDATIONS MADE FOR WOUND CARE AND SKIN PROTECTION. DISCUSSED WITH NURSING STAFF. PT IS ON [facility] BED. Addendum: 06/11/21 at 1138 by SANNA SMITHU Amended: Links added. Addendum: 06/12/21 at 1109 by SANNA SMITHU PT'S DAUGHTER STATED THAT PT HAD SACRAL WOUND PRIOR TO ADMISSION.
--- NOTE | 2021-06-11 12:30 | NUR ---
photos taken.pt. tolerating well.wd. care done.
[2021-06-11] MEDS: CLOTRIMAZOLE 1% 15 GM TUBE TP SCH ×2 (15:31→17:39)
[2021-06-11 16:00] VITALS: BP 132/61
--- NOTE | 2021-06-11 17:40 | NUR ---
all papers signed including belonging sheet.hep lock leaking and removed.report called to november at [place].report to ambulance drivers.taken via amb.to [facility].
[2021-06-12 07:06] LABS: *SPE A/G RATIO 0.8 (0.7-1.7); *SPE ALPHA-1-GLOBULIN 0.5 g/dL (0.0-0.4); *SPE ALPHA-2-GLOBULIN 0.9 g/dL (0.4-1.0); *SPE BETA GLOBULIN 0.9 g/dL (0.7-1.3); *SPE M-SPIKE Not Observed g/dL (Not Observed)
== END 2021-06-11 17:45 | DRG 480 ==
LOC: ER 23:23 → MED 06-08 05:13
PROVIDERS: ADMIT Nurse Practitioner Acute Care; ATTEND Nurse Practitioner Acute Care
PROC: 0QS606Z Reposition Right Upper Femur with Intramedullary Internal Fixation Device, Open Approach (ICD-10-PCS; principal; 2021-06-08)
PROC: 30233N1 Transfusion of Nonautologous Red Blood Cells into Peripheral Vein, Percutaneous Approach (ICD-10-PCS; 2021-06-09)
DX: S72.141A Displaced intertrochanteric fracture of right femur, initial encounter for closed fracture (principal); N17.0 Acute kidney failure with tubular necrosis; D68.59 Other primary thrombophilia; J98.11 Atelectasis; W18.30XA Fall on same level, unspecified, initial encounter; E11.22 Type 2 diabetes mellitus with diabetic chronic kidney disease; E11.40 Type 2 diabetes mellitus with diabetic neuropathy, unspecified; E11.51 Type 2 diabetes mellitus with diabetic peripheral angiopathy without gangrene; I12.9 Hypertensive chronic kidney disease with stage 1 through stage 4 chronic kidney disease, or unspecified chronic kidney disease; I16.0 Hypertensive urgency; I25.10 Atherosclerotic heart disease of native coronary artery without angina pectoris; M20.41 Other hammer toe(s) (acquired), right foot; M17.11 Unilateral primary osteoarthritis, right knee; M20.42 Other hammer toe(s) (acquired), left foot; Z20.822 Contact with and (suspected) exposure to COVID-19; L97.509 Non-pressure chronic ulcer of other part of unspecified foot with unspecified severity; K21.9 Gastro-esophageal reflux disease without esophagitis; N18.9 Chronic kidney disease, unspecified; E11.622 Type 2 diabetes mellitus with other skin ulcer; E11.621 Type 2 diabetes mellitus with foot ulcer; I48.91 Unspecified atrial fibrillation; Y92.009 Unspecified place in unspecified non-institutional (private) residence as the place of occurrence of the external cause; Z79.84 Long term (current) use of oral hypoglycemic drugs; Z79.899 Other long term (current) drug therapy; D63.8 Anemia in other chronic diseases classified elsewhere; D72.829 Elevated white blood cell count, unspecified; N13.9 Obstructive and reflux uropathy, unspecified; Z79.82 Long term (current) use of aspirin
CPT/HCPCS: 36415; 71045-TC; 73501; 73502; 73552; 73560-TC; 73590-TC; 76770-TC; 80048-TC; 80053-TC; 80061-TC; 81001; 82550-TC; 82553; 82570-TC; 82728-TC; 83540-TC; 83735-TC; 83970; 84100-TC; 84155; 84155-TC; 84165; 84300-TC; 84439-TC; 84443-TC; 84484-TC; 85025-TC; 85730-TC; 86850-TC; 87081-TC; 93307-TC; 97112-TC; 97530-TC; A6209; C1713; C9803; G0378; J0360; J0690; J1650; J2250; J2270; J2405; J2704; J2765; J3010; J3370; J3475; J3480; J3490; J7030; J7050; J7060; J7120; P9016